=== PATIENT | female | born 1935 | race Caucasian/White ===

== ENCOUNTER 2016-07-03 13:04 | Emergency (ER) | payer OTHER ==
[~2016-07-03 13:04] MED LIST: ADV500/50; ALBUD HHN; ALBUTEROL SULFAT3 ML IH; ALD25 PO; ALDACTONE25 MG PO; AMB5 PO; AMITRIPTYLINE H10 MG PO; AMITRIPTYLINE10 MG PO; ANT12.5 PO; APAP/HYDROCODON1 T13 PO; APAP/HYDROCODON1 T15 PO; APR20I IV; ASPIR 8181 MG PO; ASPIRIN ADULT L81 M5 PO; BACO TOP; BACTRIM DS1 TAB PO; BG MC; BUS10 PO; BUS5 PO; BUSPAR5 MG PO; BUSPIRONE HCL10 MG PO; BUSPIRONE HCL5 MG PO; CEFTRIAXON1 GM/50 M1 IV; CEL100 PO; CENTRUM SILVER1 TAB PO; CIPRO500 MG PO; CLEOCIN HCL300 MG PO; COG1 PO; COL100 PO; COLACE100 MG PO; CYMBALTA30 M1 PO; CYMBALTA60 M1 PO; DEC150 PO; DETROL LA2 MG PO; DETROL2 MG PO; DEXPF IV; DITROPAN XL5 MG PO; DOC-Q-LACE100 MG PO; ECO81 PO; ELA10 PO; ENALAPRIL MALE2.5 MG PO; ESCITALOPRAM PO; EVI60 PO; FAMOTIDINE20 MG PO; FER300 PO; FERROUS SULFAT325 M2 PO; GABAPENTIN800 M1 PO; GLU500 PO; GOOD SENSE ASPI81 M3 PO; HCTZ/LISINOPRIL1 TA1 PO; HCTZ/LISINOPRIL1 TAB PO; HEP-FORTE1 CAP PO; HIBICLENS118 ML TOP; HUMULIN R100 U/1 M1 IJ; HUMULIN R100 U/1 M1 SC; HYDROCHLOROTH12.5 M2 PO; HYDROCHLOROTH12.5 MG PO; HYDROCHLOROTHIA25 MG PO; K10 PO; KLOR-CON M1010 MEQ PO; L20 PO; LAC PO; LATANOPROST2.5 ML OP; LEVOFLOXACIN500 M1 PO; LEVOTHYROXIN0.025 M2 PO; LEXAPRO10 MG PO; LIPI20 PO; LISINOPRIL40 MG PO; LOP600 PO; LOVASTATIN20 MG PO; MAC100 PO; MECLIZINE HYDRO25 M1 PO; METFORMIN HCL500 MG PO; METFORMIN HYDR500 M1 PO; METFORMIN500 M1 PO; MEV20 PO; MEVACOR20 MG PO; MIR125 PO; MOR2I IV; MULTIVITAMIN1 SGL PO; MUPIROCIN2% TOP; NEU300 PO; NEURONTIN400 MG PO; NEURONTIN600 MG PO; NEURONTIN800 MG PO; NOR10T PO; NOR5 PO; NORCO1 TA2 PO; OMEPRAZOLE20 M2 PO; OXYBUTYNIN5 M1 PO; OXYC PO; PEP20 PO; PEPCID20 MG PO; POTASSIUM CHLO10 MEQ PO; POTASSIUM PO; PRI20 PO; PRILOSEC20 MG PO; PROAIR HFA8.5 GM IH; PROVENTIL0.09 MG/A1 INH; PULMICORT180 MCG/Ac INH; RES15 PO; RESTASIS OU; RESTASIS0.051 OP; RESTASIS0.051 OU; RESTORIL15 MG PO; SERTRALINE HYDR50 M1 PO; SYN25 PO; TEN25 PO; TENORMIN25 MG PO; TORADOL10 MG PO; TRAMADOL HCL50 MG; TRAMADOL HCL50 MG PO; TRE400 PO; TRENTAL400 MG PO; TYL325 PO; ULT50 PO; V2 PO; VENTOLIN H0.09 MG/A1 IH; VENTOLIN H0.09 MG/A1 INH; VITAMIN C250 M1 PO; VITC PO; XALATAN2.5 ML OP; XALATAN2.5 ML OU; XALOS OP; XALOS OU; XAN5 PO; ZES20 PO; ZOF4 PO; ZOFI IV; [UNRECOGNIZED DRUG - OTHER] OU
[2016-07-03 16:11] LABS: BASOPHIL % 0.3 % (0-2)
[2016-07-03 16:13] LABS: PLATELET COUNT 121 x10^3mcL (130-400); RED CELL DISTRIBUTION WIDTH 14.6 % (11.5-14.5)
[2016-07-03 16:14] LABS: CALCIUM 8.9 mg/dL (8.5-10.1); CARBON DIOXIDE 31.3 mmol/L (21-32); CHLORIDE SERUM 102 mmol/L (98-107); CREATININE SERUM 0.7 mg/dL (0.6-1.0); GLUCOSE SERUM 122 mg/dL (74-106); POTASSIUM SERUM 3.8 mmol/L (3.5-5.1); SODIUM SERUM 140 mmol/L (136-145)
[2016-07-03 16:20] LABS: ALBUMIN 3.7 g/dL (3.4-5.0); ALKALINE PHOSPHATASE 133 U/L (46-116); ALT/SGPT 24 U/L (14-59); AST/SGOT 21 U/L (15-37); BILIRUBIN TOTAL 0.4 mg/dL (0.20-1.00); TOTAL PROTEIN, SERUM 6.5 g/dL (6.4-8.2)
[2016-07-03 16:34] VITALS: BP 152/80
== END 2016-07-03 16:34 | disposition home or self-care (01) ==
LOC: ED 13:04
PROVIDERS: Emergency Medicine
DX: M79.89 Other specified soft tissue disorders (principal); E11.40 Type 2 diabetes mellitus with diabetic neuropathy, unspecified; I10 Essential (primary) hypertension; E03.9 Hypothyroidism, unspecified; J45.909 Unspecified asthma, uncomplicated; E78.5 Hyperlipidemia, unspecified; M79.7 Fibromyalgia

== ENCOUNTER 2016-08-13 13:40 | Emergency (ER) | payer OTHER ==
[~2016-08-13] VITALS: Ht 157.5 cm; Wt 57.1 kg
[2016-08-13 15:30] LABS: BASOPHIL % 0.2 % (0-2); RED CELL DISTRIBUTION WIDTH 14.3 % (11.5-14.5)
[2016-08-13 15:33] LABS: PLATELET COUNT 128 x10^3mcL (130-400)
[2016-08-13 15:48] LABS: CHLORIDE SERUM 105 mmol/L (98-107); CREATININE SERUM 0.7 mg/dL (0.6-1.0); GLUCOSE SERUM 142 mg/dL (74-106); POTASSIUM SERUM 3.6 mmol/L (3.5-5.1); SODIUM SERUM 142 mmol/L (136-145)
[2016-08-13 15:52] LABS: ALBUMIN 3.8 g/dL (3.4-5.0); ALKALINE PHOSPHATASE 122 U/L (46-116); ALT/SGPT 23 U/L (14-59); AST/SGOT 24 U/L (15-37); BILIRUBIN TOTAL 0.4 mg/dL (0.20-1.00); CHOLESTEROL 179 mg/dL (<200); TOTAL PROTEIN, SERUM 6.9 g/dL (6.4-8.2)
[2016-08-13 18:24] VITALS: BP 138/74
== END 2016-08-13 18:24 | disposition home or self-care (01) ==
LOC: ED 13:40
PROVIDERS: Specialist
DX: R20.2 Paresthesia of skin (principal); E11.9 Type 2 diabetes mellitus without complications; E78.00 Pure hypercholesterolemia, unspecified; K21.9 Gastro-esophageal reflux disease without esophagitis; M79.7 Fibromyalgia; G62.9 Polyneuropathy, unspecified; Z88.0 Allergy status to penicillin
CPT/HCPCS: 83880; G0480; Q0092

== ENCOUNTER 2016-08-25 16:52 | Inpatient (IN) | payer OTHER ==
[~2016-08-25] VITALS: Ht 157.5 cm; Wt 61.0 kg
[2016-08-25 18:17] LABS: BASOPHIL % 0.5 % (0-2); PLATELET COUNT 141 x10^3mcL (130-400); RED CELL DISTRIBUTION WIDTH 14.2 % (11.5-14.5)
[2016-08-25 18:21] LABS: CALCIUM 8.7 mg/dL (8.5-10.1); CARBON DIOXIDE 29.1 mmol/L (21-32); CHLORIDE SERUM 101 mmol/L (98-107); CREATININE SERUM 0.8 mg/dL (0.6-1.0); GLUCOSE SERUM 135 mg/dL (74-106); POTASSIUM SERUM 3.4 mmol/L (3.5-5.1); SODIUM SERUM 138 mmol/L (136-145)
[2016-08-25 18:32] LABS: ALBUMIN 3.6 g/dL (3.4-5.0); ALKALINE PHOSPHATASE 128 U/L (46-116); ALT/SGPT 21 U/L (14-59); AST/SGOT 20 U/L (15-37); BILIRUBIN TOTAL 0.25 mg/dL (0.20-1.00); TOTAL PROTEIN, SERUM 6.6 g/dL (6.4-8.2)
[2016-08-25] MEDS ORDERED: GABAPENTIN800 M1 PO (20:38)
[2016-08-25 20:40] VITALS: BP 154/50
[2016-08-25 20:44] VITALS: Ht 157.5 cm; Wt 61.0 kg
[2016-08-25 21:20] LABS: T3 TOTAL 0.87 ng/mL
[2016-08-25 21:22] LABS: FREE T4 0.84 ng/dL (0.76-1.46); FREE THYROXINE INDEX 2.3 ug/dL (1.4-4.5); T4(THYROXINE) 6.5 ug/dL (4.7-13.3)
[2016-08-25 21:43] LABS: CHOLESTEROL/HDL RATIO 2.3
[2016-08-26 06:09] VITALS: BP 140/59
[2016-08-26 06:53] LABS: BASOPHIL % 0.4 % (0-2); RED CELL DISTRIBUTION WIDTH 14.1 % (11.5-14.5)
[2016-08-26 06:55] LABS: PLATELET COUNT 129 x10^3mcL (130-400)
[2016-08-26 07:35] LABS: CALCIUM 8.8 mg/dL (8.5-10.1); CARBON DIOXIDE 31.8 mmol/L (21-32); CHLORIDE SERUM 105 mmol/L (98-107); CREATININE SERUM 0.6 mg/dL (0.6-1.0); GLUCOSE SERUM 112 mg/dL (74-106); PHOSPHOROUS 3.2 mg/dL (2.5-4.9); POTASSIUM SERUM 3.2 mmol/L (3.5-5.1); SODIUM SERUM 141 mmol/L (136-145)
[2016-08-26 07:36] LABS: MAGNESIUM 1.9 mg/dL (1.8-2.4)
[2016-08-26 09:49] VITALS: BP 149/65
[2016-08-26 14:11] VITALS: BP 148/54
[2016-08-26 16:54] VITALS: BP 147/57
[2016-08-26 19:50] VITALS: BP 167/69
[2016-08-27 05:34] VITALS: BP 182/64
[2016-08-27 06:37] LABS: BASOPHIL % 0.3 % (0-2); RED CELL DISTRIBUTION WIDTH 14.4 % (11.5-14.5)
[2016-08-27 06:58] LABS: PLATELET COUNT 129 x10^3mcL (130-400)
[2016-08-27 07:07] LABS: CALCIUM 8.7 mg/dL (8.5-10.1); CARBON DIOXIDE 27.1 mmol/L (21-32); CHLORIDE SERUM 106 mmol/L (98-107); CREATININE SERUM 0.6 mg/dL (0.6-1.0); GLUCOSE SERUM 101 mg/dL (74-106); MAGNESIUM 1.7 mg/dL (1.8-2.4); PHOSPHOROUS 3.3 mg/dL (2.5-4.9); POTASSIUM SERUM 3.6 mmol/L (3.5-5.1); SODIUM SERUM 139 mmol/L (136-145)
[2016-08-27 10:31] VITALS: BP 148/62
[2016-08-27 17:15] VITALS: BP 155/68
[2016-08-27 18:40] LABS: microscopic required? YES; urine erythrocyte 3+ (NEGATIVE)
[2016-08-27 22:48] VITALS: BP 153/55
[2016-08-28 05:15] VITALS: BP 154/51
[2016-08-28 07:00] LABS: BASOPHIL % 0 % (0-2); PLATELET COUNT 128 x10^3mcL (130-400)
[2016-08-28 07:27] LABS: CALCIUM 8.4 mg/dL (8.5-10.1); CARBON DIOXIDE 24.8 mmol/L (21-32); CHLORIDE SERUM 106 mmol/L (98-107); CREATININE SERUM 0.5 mg/dL (0.6-1.0); GLUCOSE SERUM 101 mg/dL (74-106); MAGNESIUM 1.9 mg/dL (1.8-2.4); PHOSPHOROUS 3.3 mg/dL (2.5-4.9); POTASSIUM SERUM 3.3 mmol/L (3.5-5.1); SODIUM SERUM 140 mmol/L (136-145)
[2016-08-28] MEDS ORDERED: BD LACTINEX1.4 MG PO (14:24)
[2016-08-28] MEDS ORDERED: NITROFURANTOIN100 MG PO (14:24)
[2016-08-28] MEDS ORDERED: PRILOSEC OTC20 M1 PO (14:45)
[2016-08-28 14:52] VITALS: BP 154/51
== END 2016-08-28 20:53 | DRG 689 ==
LOC: ED 16:52 → DU 18:57 → MU 18:57 → DU 20:27 → MU 08-27 06:52
PROVIDERS: Emergency Medicine; ADMIT Family Medicine
DX: N39.0 Urinary tract infection, site not specified (principal); G93.41 Metabolic encephalopathy; S32.10XA Unspecified fracture of sacrum, initial encounter for closed fracture; I42.9 Cardiomyopathy, unspecified; D68.69 Other thrombophilia; R55 Syncope and collapse; S40.012A Contusion of left shoulder, initial encounter; S50.02XA Contusion of left elbow, initial encounter; S70.02XA Contusion of left hip, initial encounter; K21.9 Gastro-esophageal reflux disease without esophagitis; E11.51 Type 2 diabetes mellitus with diabetic peripheral angiopathy without gangrene; E11.40 Type 2 diabetes mellitus with diabetic neuropathy, unspecified; G47.00 Insomnia, unspecified; F41.8 Other specified anxiety disorders; F32.9 Major depressive disorder, single episode, unspecified; M79.7 Fibromyalgia; M50.122 Cervical disc disorder at C5-C6 level with radiculopathy; M50.123 Cervical disc disorder at C6-C7 level with radiculopathy; J45.909 Unspecified asthma, uncomplicated; I10 Essential (primary) hypertension; E03.9 Hypothyroidism, unspecified; Z68.24 Body mass index [BMI] 24.0-24.9, adult; Z91.81 History of falling; W18.39XA Other fall on same level, initial encounter; Y92.000 Kitchen of unspecified non-institutional (private) residence as the place of occurrence of the external cause
CPT/HCPCS: 82962; 83880; 84439; 97110-GP; 97116-GP; 97530-GP; J1956; J2270; J2405; J3010; J3475; J3490; J7030; J7620; J7633; Q0092

== ENCOUNTER 2016-10-02 12:27 | Emergency (ER) | payer OTHER ==
[~2016-10-02 12:27] MED LIST changes: +BD LACTINEX1.4 MG PO; +NITROFURANTOIN100 MG PO; +PRILOSEC OTC20 M1 PO
[2016-10-02 16:32] LABS: CALCIUM 8.8 mg/dL (8.5-10.1); CARBON DIOXIDE 27.2 mmol/L (21-32); CHLORIDE SERUM 99 mmol/L (98-107); CREATININE SERUM 0.7 mg/dL (0.6-1.0); GLUCOSE SERUM 123 mg/dL (74-106); POTASSIUM SERUM 3.4 mmol/L (3.5-5.1); SODIUM SERUM 137 mmol/L (136-145)
[2016-10-02 16:57] LABS: UA SPECIFIC GRAVITY <=1.005 (1.005-1.035); microscopic required? YES; urine erythrocyte TRACE (NEGATIVE)
[2016-10-02 16:59] LABS: BASOPHIL % 0.3 % (0-2); PLATELET COUNT 111 x10^3mcL (130-400); RED CELL DISTRIBUTION WIDTH 14.6 % (11.5-14.5)
[2016-10-02 20:09] VITALS: BP 146/75
== END 2016-10-02 20:09 | disposition home or self-care (01) ==
LOC: ED 12:27
PROVIDERS: Emergency Medicine Emergency Medical Services
DX: J34.89 Other specified disorders of nose and nasal sinuses (principal); N39.0 Urinary tract infection, site not specified; I10 Essential (primary) hypertension; I50.9 Heart failure, unspecified; E11.9 Type 2 diabetes mellitus without complications; J45.909 Unspecified asthma, uncomplicated; Z79.899 Other long term (current) drug therapy; Z88.0 Allergy status to penicillin; W06.XXXA Fall from bed, initial encounter; Y93.89 Activity, other specified; Y99.8 Other external cause status; Y92.89 Other specified places as the place of occurrence of the external cause
CPT/HCPCS: 36415

== ENCOUNTER 2016-10-26 12:14 | Emergency (ER) | payer OTHER ==
[2016-10-26 16:48] VITALS: BP 168/56
== END 2016-10-26 16:48 | disposition home or self-care (01) ==
LOC: ED 12:14
DX: S50.01XA Contusion of right elbow, initial encounter (principal); M54.5 Low back pain; E11.9 Type 2 diabetes mellitus without complications; I10 Essential (primary) hypertension; E78.00 Pure hypercholesterolemia, unspecified; K21.9 Gastro-esophageal reflux disease without esophagitis; M79.7 Fibromyalgia; Z88.0 Allergy status to penicillin; Z79.899 Other long term (current) drug therapy; W18.39XA Other fall on same level, initial encounter; Y93.89 Activity, other specified; Y99.8 Other external cause status; Y92.89 Other specified places as the place of occurrence of the external cause
CPT/HCPCS: 82962; J1885

== ENCOUNTER 2016-11-21 14:19 | Inpatient (IN) | payer OTHER ==
[~2016-11-21] VITALS: Ht 157.5 cm; Wt 61.5 kg
--- NOTE | 2016-11-21 14:35 | NUR ---
TO BED 7 AFTER BRIEF WALL TIME.
--- NOTE | 2016-11-21 14:50 | NUR ---
DR. BARBA BEDSIDE FOR MSE
--- NOTE | 2016-11-21 14:54 | NUR ---
PATIENT BROUGHT IN BY AMBULANCE COMPLAINING OF GENERALIZED PAIN SECONDARY TO FAILLING FROM BED THIS MORNING. PATIENT HAS ABRASION TO THE LEFT TAOIST NOTE THAT IS NOT BLEEDING AND HAS A SCAB. PATIENT HAS ECCHYMOSIS TO LEFT THIGH. NO RESPIRATORY DISTRESS NOTED, NO COMPLAINTS OF CHEST PAIN OR SOB.
[2016-11-21 15:26] LABS: BASOPHIL % 0.2 % (0-2); PLATELET COUNT 142 x10^3mcL (130-400); RED CELL DISTRIBUTION WIDTH 13.9 % (11.5-14.5)
[2016-11-21 15:42] LABS: microscopic required? NO
[2016-11-21 15:45] LABS: ALBUMIN 3.7 g/dL (3.4-5.0); ALKALINE PHOSPHATASE 114 U/L (46-116); ALT/SGPT 22 U/L (14-59); AMYLASE 35 U/L (25-115); AST/SGOT 33 U/L (15-37); CHLORIDE SERUM 101 mmol/L (98-107); CHOLESTEROL 152 mg/dL (<200); CREATININE SERUM 0.6 mg/dL (0.6-1.0); GLUCOSE SERUM 135 mg/dL (74-106); LIPASE 83 IU/L (73-393); MAGNESIUM 1.9 mg/dL (1.8-2.4); SODIUM SERUM 138 mmol/L (136-145); T4(THYROXINE) 7.9 ug/dL (4.7-13.3); TOTAL PROTEIN, SERUM 7.3 g/dL (6.4-8.2)
[2016-11-21 15:52] LABS: HDL CHOLESTEROL 62 mg/dL (40-60)
[2016-11-21 15:54] LABS: POTASSIUM SERUM 2.8 mmol/L (3.5-5.1)
--- NOTE | 2016-11-21 16:20 | NUR ---
PT TO CT SCANNER VIA [employer]. NO DISTRESS.
[2016-11-21 16:41] LABS: urine erythrocyte NEGATIVE (NEGATIVE)
[2016-11-21 16:42] LABS: AMPHETAMINE QUAL UR NONE DETECTED (NEG <=1000)
--- NOTE | 2016-11-21 17:08 | NUR ---
UNABLE TO DO MED REC DUE TO PATIENT UNABLE TO RECALL HOME MEDICATIONS OR DOSAGES.
--- NOTE | 2016-11-21 17:18 | NUR ---
PATIENT STATES THAT SHE HAS DIFFICULTY SWALLOWING PILLS. DR. GRAF MADE AWARE. TO BE HELD AND IV REPLACEMENT TO BE ORDERED.
--- NOTE | 2016-11-21 17:29 | NUR ---
RECEIVED PATIENT FROM ED VIA GUERNEY ACCOMPANIED BY ED NURSE. PATIENT A/O X3, BRITISH SPEAKING WITH LITTLE INDONESIAN. PATIENT BIB DUE TO FALLING OUT OF BED THIS AM, SMALL ABRASION/SCAB NOTED TO LEFT UATSDIN AND ECCHYMOSIS NOTED TO RIGHT AND LEFT HIP (PICTURES TAKEN). TELE # 18 APPLIED. BREATHING EVEN UNLABBORED ON RA, DENIES SOB, NO DISTRESS NOTED. PATIENT HAS IV TO RAC INTACT INFUSING NS AT 100 ML/HR FREE FROM REDNESS AND INFILTRATION. PATIENT COOPERATIVE WITH CARE, ORIENTED TO ROOM. INSTRUCTED TO CALL FOR ASSISTANCE IF NEEDED. SAFETY PRECAUTIONS MAINTAINED, WILL MONITOR.
[2016-11-21 17:45] VITALS: BP 180/67
[2016-11-21 17:55] VITALS: BP 180/67
--- NOTE | 2016-11-21 19:15 | NUR ---
REPORT GIVEN TO DANILO DOMINGUEZ, ALL QUESTIONS AND CONCERNS ADDRESSED. ALL CARES ENDORSED.
--- NOTE | 2016-11-21 19:15 | NUR ---
I HAVE REVIEWED THE DATA COLLECTION BY ORDERING MACHINE OPERATOR (NAME):ALBERTO MARTIN CHI ENTERED ON (DATE/TIME): I CONCUR WITH THE DATA AND ANY EXCEPTIONS OR COMMENTS ARE LISTED BELOW:
--- NOTE | 2016-11-21 19:45 | NUR ---
DR. OMAR TAMEZ AT BEDSIDE AND ASSESSING PT. PT DIFFICULT TO AROUSE AT THIS TIME BUT OPENING EYES AT TIMES. WILL CONTINUE TO MONITOR PT.
--- NOTE | 2016-11-21 19:55 | NUR ---
I HAVE REVIEWED THE DATA COLLECTION BY OTHER SALES SUPPORT WORKER (NAME):ALBERTO MARTIN CHI. ENTERED ON (DATE/TIME): I CONCUR WITH THE DATA AND ANY EXCEPTIONS OR COMMENTS ARE LISTED BELOW:
[2016-11-21 19:57] VITALS: BP 147/64
[2016-11-21 22:00] VITALS: BP 157/63
--- NOTE | 2016-11-21 22:45 | NUR ---
PT AWAKE AND ORIENTED X3. SHE IS INCONTINENT OF URINE. CLEANED PT AND KEPT COMFORTABLE.
[2016-11-21 22:46] LABS: CALCIUM 8.4 mg/dL (8.5-10.1); CHLORIDE SERUM 106 mmol/L (98-107); CREATININE SERUM 0.5 mg/dL (0.6-1.0); GLUCOSE SERUM 131 mg/dL (74-106); SODIUM SERUM 141 mmol/L (136-145)
[2016-11-21 22:49] LABS: POTASSIUM SERUM 2.7 mmol/L (3.5-5.1)
--- NOTE | 2016-11-21 22:52 | NUR ---
INFORMED DR. TAMEZ REGARDING POTASSIUM OF 2.7 .
--- NOTE | 2016-11-21 23:05 | NUR ---
PT FEELING NAUSEATED AND VOMITING SMALL AMOUNT. MEDICATED HER W/ ZOFRAN 4 MG IV.
--- NOTE | 2016-11-21 23:30 | NUR ---
PT APPERAS TO BE SLEEPING COMFORTABLY. NO FURTHER C/O N/V.
--- NOTE | 2016-11-22 03:25 | NUR ---
PT AWAKE AND ORIENTED AT THIS TIME, PT ANSWERS APPROPRIATELY, NO FACIAL DROOP NOTED, BUT PT C/O DAMON 10/28. PT GIVEN TYLENOL 650 MG PO FOR DAMON. WILL CONTINUE TO ASSESS AND MONITOR.
--- NOTE | 2016-11-22 04:19 | NUR ---
REASSESSED PT FOR DAMON. PT CURRENTLY SLEEPING COMFORTABLY, NO SIGNS OF DISTRESS NOTED. WILL CONTINUE TO MONITOR.
[2016-11-22 06:32] LABS: BASOPHIL % 0.3 % (0-2); RED CELL DISTRIBUTION WIDTH 14.1 % (11.5-14.5)
[2016-11-22 06:41] VITALS: BP 139/54
[2016-11-22 06:42] LABS: CALCIUM 8.4 mg/dL (8.5-10.1); CARBON DIOXIDE 25.9 mmol/L (21-32); CHLORIDE SERUM 108 mmol/L (98-107); CREATININE SERUM 0.6 mg/dL (0.6-1.0); GLUCOSE SERUM 116 mg/dL (74-106); POTASSIUM SERUM 3.3 mmol/L (3.5-5.1); SODIUM SERUM 142 mmol/L (136-145)
[2016-11-22 06:53] LABS: PLATELET COUNT 129 x10^3mcL (130-400)
--- NOTE | 2016-11-22 06:56 | NUR ---
PT ASLEEP MOST OF THE NIGHT. SHE HAD NO EPISODE OF RESP. DISTRESS. PT ABLE TO ANSWER APPROPRIATELY. SHE IS ORIENTED X3. SHE WAS ABLE TO TAKE HER PO MEDS WELL THIS MORNING. SHE HAS NO C/O PAIN. SHE IS INCONTINENT OF URINE AND NO BM NOTED. IVF NS AT 100 CC/HR INFUSING VIA RTAC.
--- NOTE | 2016-11-22 07:21 | NUR ---
RECEIVED PT LAYING IN BED ASLEEP. NO APPARENT SIGNS OF ACUTE DISTRESS NOTED AT THIS TIME. RESPIRATIONS EVEN AND UNLABORED. IV TO RAC APPEARS PATENT AND INFUSING WELL. SCDs IN PLACE. CALL LIGHT WITHIN REACH, BED IN LOWEST POSITION. WILL CONTINUE TO MONITOR
[2016-11-22 08:50] VITALS: BP 139/54
--- NOTE | 2016-11-22 09:00 | NUR ---
AM ROUNDS DONE. PER DR. SUAREZ, PT WILL STAY FOR CONTINUED MONITORING. PT AGREES TO PLAN OF CARE. CALL LIGHT WITHIN REACH. WILL CONTINUE TO MONITOR
--- NOTE | 2016-11-22 11:04 | NUR ---
PT C/O SEVERE BACK PAIN. ENCOURAGED PT TO RELAX AND TAKE DEEP BREATHES. GIVEN MORPHINE IVP PRN. CALL LIGHT WITHIN REACH, REPOSITIONED PT FOR COMFORT, AND BED IN LOWEST POSITION. WILL CONTINUE TO MONITOR
--- NOTE | 2016-11-22 12:20 | NUR ---
SPKUSUM TO DR. CELESTE IN REGARDS TO PT C/O SEVERE PAIN IN HER FEET WELL CONTINUED FEELINGS OF DIZZINESS DESPITE MECLIZINE. DOCTOR STATED HE WOULD REVIEW HER MED REC FOR NEURONTIN AND POSSIBLE ONE TIME DOSE OF DILAUDID PRN. AWAITING ORDERS
--- NOTE | 2016-11-22 13:10 | NUR ---
SENT DR. CELESTE A PAGEGATE IN REGARDS TO PT DIET. PT REQUESTED PUREE DIET BECAUSE SHE HAS NO TEETH. AWAITING RESPONSE
[2016-11-22 13:36] VITALS: BP 150/57
--- NOTE | 2016-11-22 15:17 | NUR ---
PT HAD C/O CONTINUED PAIN AND DIZZINESS. WAS GIVEN DILAUDID x1 AND MECLIZINE 25MG PO PRN TID. DR. CELESTE AWARE OF PT CONDITION. CALL LIGHT WITHIN REACH, BED IN LOWEST POSITION WILL CONTINUE TO MONITOR
[2016-11-22 17:28] VITALS: BP 144/57
--- NOTE | 2016-11-22 17:59 | NUR ---
PT C/O PAIN 5/10 PAIN. ENCOURAGED PT TO REPOSITION FOR COMFORT. GIVEN NORCO PO PRN. CALL LIGHT WITHIN REACH. ENCOURAGED PT TO TAKE IN ADEQUATE FLUIDS. BED IN LOWEST POSITION. WILL CONTINUE TO MONITOR
--- NOTE | 2016-11-22 19:35 | NUR ---
RECEIVED Pt AAOX3 CALMA ND COOPERATIVE WITH CARE. DENIES ANY CHEST PAIN. LUNG SOUNDS ARE CTA BILATERALLY. Pt IS ON ROOM AIR, NO RESPIRATORY DISTRESS NOTED. ACTIVE BOWEL SOUNDS X4 QUADS. DENIES ANY ABDOMINAL DISCOMFORT, N/V/D. VOIDS FREELY. IV SITE TO RAC IS PATENT. MOVES ALL EXTREMITIES, NO EDEMA NOTED. SCD'S IN PLACE. RE-ORIENTED TO ROOM, CALL LIGHT SYSTEM AND POC. WILL CONTINUE TO MONITOR.
[2016-11-22 20:51] VITALS: BP 135/48
--- NOTE | 2016-11-22 23:44 | NUR ---
I HAVE REVIEWED THE DATA COLLECTION BY JELENA (NAME):Vasyl TIDWELL ENTERED ON (DATE/TIME):11/22/16 AT 2001. I CONCUR WITH THE DATA AND ANY EXCEPTIONS OR COMMENTS ARE LISTED BELOW:
--- NOTE | 2016-11-22 23:45 | NUR ---
PATIENT'S PLAN OF CARE WAS DISCUSSED AND REVIEWED WITH RING BARKER OPERATOR:Vasyl TIDWELL.
--- NOTE | 2016-11-23 00:22 | NUR ---
Pt RESTING, NO SIGNS OF DISTRESS. WILL CONTINUE TO MONITOR.
--- NOTE | 2016-11-23 05:18 | NUR ---
AWARE OF K-RIDER DAILY. LAB DRAWING AM LABS AT THIS TIME. STATED WILL LET THE DAY TEAM DECIDE IF K-RIDER IS NEEDED, BASED ON AM LAB RESULTS.
--- NOTE | 2016-11-23 05:20 | NUR ---
NO SIGNIFICANT CHANGES NOTED OVER NIGHT. MEDICATED NEEDED FOR PAIN AND DIZZINESS. VOIDS FREELY/INCONTINENT. CONTINUES TO REST QUIETLY. SAFETY AND COMFORT MEASURES REMAIN IN PLACE. WILL CONTINUE TO MONITOR.
[2016-11-23 05:23] VITALS: BP 136/55
[2016-11-23 06:22] LABS: BASOPHIL % 0.7 % (0-2); RED CELL DISTRIBUTION WIDTH 14.4 % (11.5-14.5)
[2016-11-23 06:27] LABS: PLATELET COUNT 117 x10^3mcL (130-400)
[2016-11-23 06:47] LABS: CALCIUM 8.3 mg/dL (8.5-10.1); CARBON DIOXIDE 29.5 mmol/L (21-32); CHLORIDE SERUM 109 mmol/L (98-107); CREATININE SERUM 0.6 mg/dL (0.6-1.0); GLUCOSE SERUM 135 mg/dL (74-106); POTASSIUM SERUM 3.3 mmol/L (3.5-5.1); SODIUM SERUM 143 mmol/L (136-145)
--- NOTE | 2016-11-23 07:45 | NUR ---
PATIENT A/OX3, DENIES HEADACHE, TIRED/DROWSY. TELE 18, DENIES CP. LUNGS MILDLY DIMINISHED BILAT OTHERWISE CTA, NO RESP DISTRESS NOTED ON RA. PERIPHERAL PULSES PALPABLE, NO EDEMA NOTED. DENIES NUMBNESS, ABLE TO MOVE ALL EXTREMITIES. BOWEL SOUNDS ACTIVE, LAST BM 11/21, DENIES N/V. INCONTINENCE NOTED. SCRATCH NOTED TO LT SIDE FOREHEAD, NO ACTIVE BLEEDING, SHERRIE. ECCHYMOSIS/DISCOLORATION NOTED TO BILAT HIPS AND BILAT ANKLES, SHERRIE. IV ACCESS TO RAC RUNNING NS INFUSING WELL SITE WNL. NO COMPLAINTS OF PAIN AT THIS TIME. SOCIAL SERVICE TECHNICIAN AT BEDSIDE ASSISTING PATIENT WITH BREAKFAST MEAL, PUREE. CALL LIGHT WITHIN REACH AND REINFORCED ON UTILIZING.
[2016-11-23 09:44] VITALS: BP 120/46
[2016-11-23 14:00] VITALS: BP 150/61
--- NOTE | 2016-11-23 16:00 | NUR ---
PATIENT C/O DIZZINESS. MECLIZINE ANTIVERT GIVEN. WILL CONT TO MONITOR.
--- NOTE | 2016-11-23 16:43 | NUR ---
PATIENT STATES NOT FEELING DIZZY/VERTIGO AT THIS TIME. MECLIZINE EFFECTIVE. WILL CONT TO MONITOR.
[2016-11-23 16:52] VITALS: BP 152/55
--- NOTE | 2016-11-23 17:29 | NUR ---
PER CASE MANAGEMENT, PATIENT HAS BEEN ACCEPTED TO [facility]. REPORT TO CALL IS [phone], ELECTRICAL ELECTRONICS TECHNICIAN TIME WITH [facility] [employer] [facility]SPORT IS 2100. CHARGE NURSE AND DR CELESTE MADE AWARE.
--- NOTE | 2016-11-23 17:58 | NUR ---
INFORMED PATIENT WITH A STAFFING EXECUTIVE THAT CASE MANAGMENT FOUND A FACILITY FOR HER TO TRANSFER TO, SHE RESPONDED "OH THANK YOU!", INFORMED PATIENT A BED IS AVAILABLE AT [facility] AND [facility] IS AT 9:00pm, PATIENT RESPONDED "OH NO, NO. I DONT WANT TO GO THERE, NOT THERE." WHEN ASKED WHY, PATIENT RESPONDED "THERE'S ALOT OF PROBLEMS WHEN I WAS THERE." KALYAN KHANNA MADE AWARE. DR CELESTE PAGED AND MADE AWARE, HE SAID HE WILL INFORM THE NOC TEAM. ATTEMPTED TO CONTACT DAUGHTER DESTINEE, NO ANSWER. LEFT VOICE MESSAGE.
[2016-11-23] MEDS ORDERED: MECLIZINE HYDRO25 M1 PO (18:12)
--- NOTE | 2016-11-23 19:33 | NUR ---
RECEIVED PATIENT FROM AM ALBERTO-MISA. PATIENT C/O PAIN TO RIGHT HIP WITH ALOT OF PAIN 8/10 WITH FACIAL GRIMACING. ADMINISTERED PAIN MEDICATION PRN FOR PAIN REQUESTED. ALSO CHANGED PATIENT, X1 URINE.
[2016-11-23 21:11] VITALS: BP 142/50
[2016-11-24 06:24] VITALS: BP 175/64
--- NOTE | 2016-11-24 06:39 | NUR ---
PATIENT QUIETLY RESTING IN BED AT THIS TIME. NO S/SX OF DISTRESS NOTED. CALL NEEDS MET AND CALL LIGHT WITHIN REACH. WILL ENDORSE CONTINUITY OF CARE TO AM RN
--- NOTE | 2016-11-24 07:15 | NUR ---
BEDSIDE REPORT RECEIVED FROM [facility] SHIFT NURSE AT THIS TIME. PATIENT ASLEEP, NO SIGNS OF DISTRESS NOTED. BREATHING EVEN AND UNLABORED. ALL SAFETY MEASURES IN PLACE, WILL CONTINUE TO MONITOR.
[2016-11-24 07:50] VITALS: BP 163/61
--- NOTE | 2016-11-24 07:50 | NUR ---
PATIENT ASLEEP, EASILY AROUSED VIA VERBAL STIMULI. DENIES CHEST PAIN, NO DIZZINESS, TELE# 18, HR 73. SCD'S IN PLACE, ON ROOM AIR. NS TO RAC AT 100 ML/HR, NO REDNESS NOR INFILTRATION NOTED TO SITE. CALM AND COOPERATIVE WITH CARE, ALL SAFETY MEASURES IN PLACE, WILL CONTINUE TO MONITOR.
--- NOTE | 2016-11-24 11:08 | NUR ---
PATIENT AWAKE, ALERT, NURSE AID AT BEDSIDE ATTENDING TO NEEDS. MEDICATED PER MD ORDER (SEE EMAR). ALL SAFETY MEASURES IN PLACE, WILL CONTINUE TO MONITOR.
[2016-11-24 12:48] VITALS: BP 172/68
--- NOTE | 2016-11-24 15:00 | NUR ---
PHYSICAL THERAPY DAILY NOTES CO-SIGN All documentation done by the Substance Abuse Technician for 11/24/16 has been reviewed. I agree with the documentation. I CONCUR W/AIRPLANE INSPECTOR NOTE; TO MONITOR VS DURING TX, CONT PER TX PLAN Reviewed/Co-Signed by: Yamile Segundo V PT Documentation Done by: TK CARDOZA AIRPLANE INSPECTOR
[2016-11-24 15:14] VITALS: BP 172/68
[2016-11-24 15:21] VITALS: BP 161/63
--- NOTE | 2016-11-24 15:45 | NUR ---
DISCHARGE TEACHING PROVIDED AT THIS TIME. PATIENT AWAKE, ALERT, NO SIGNS OF DISTRESS NOTED, IV DC'D, TELE MONITOR RETURNED TO COAL LOADER. WILL FACILITATE DISCHARGE.
--- NOTE | 2016-11-24 16:05 | NUR ---
REPORT GIVEN TO NURSE AT [facility] AT THIS TIME. TRANSPORT AT BEDSIDE, WILL FACITLITATE DISCHARGE.
== END 2016-11-24 16:40 | DRG 605 ==
LOC: ED 14:19 → DU 16:29
PROVIDERS: Emergency Medicine; ADMIT Family Medicine
DX: S00.03XA Contusion of scalp, initial encounter (principal); I42.0 Dilated cardiomyopathy; E87.6 Hypokalemia; E11.42 Type 2 diabetes mellitus with diabetic polyneuropathy; I16.0 Hypertensive urgency; K21.9 Gastro-esophageal reflux disease without esophagitis; M79.7 Fibromyalgia; M50.122 Cervical disc disorder at C5-C6 level with radiculopathy; M50.123 Cervical disc disorder at C6-C7 level with radiculopathy; N32.81 Overactive bladder; J45.909 Unspecified asthma, uncomplicated; F41.8 Other specified anxiety disorders; E03.9 Hypothyroidism, unspecified; E78.5 Hyperlipidemia, unspecified; Z68.24 Body mass index [BMI] 24.0-24.9, adult; Z22.322 Carrier or suspected carrier of Methicillin resistant Staphylococcus aureus; Z91.81 History of falling; W06.XXXA Fall from bed, initial encounter; Y92.003 Bedroom of unspecified non-institutional (private) residence as the place of occurrence of the external cause
CPT/HCPCS: 82962; 83880; 97110-GP; 97116-GP; 97530-GP; G0480; J1170; J2270; J2405; J3480; J7030; J7613; J8597; Q0092

== ENCOUNTER 2017-01-08 00:30 | Inpatient (IN) | payer OTHER ==
[~2017-01-08] VITALS: Ht 152.4 cm; Wt 59.4 kg
[2017-01-08 01:41] LABS: BASOPHIL % 0.3 % (0-2); PLATELET COUNT 150 x10^3mcL (130-400); RED CELL DISTRIBUTION WIDTH 14.1 % (11.5-14.5)
[2017-01-08 02:01] LABS: CALCIUM 8.6 mg/dL (8.5-10.1); CARBON DIOXIDE 28.2 mmol/L (21-32); CHLORIDE SERUM 103 mmol/L (98-107); CREATININE SERUM 0.7 mg/dL (0.6-1.0); GLUCOSE SERUM 81 mg/dL (74-106); POTASSIUM SERUM 3.1 mmol/L (3.5-5.1); SODIUM SERUM 137 mmol/L (136-145)
[2017-01-08 02:05] LABS: ALBUMIN 3.5 g/dL (3.4-5.0); ALKALINE PHOSPHATASE 107 U/L (46-116); ALT/SGPT 21 U/L (14-59); AST/SGOT 23 U/L (15-37); TOTAL PROTEIN, SERUM 6.5 g/dL (6.4-8.2)
[2017-01-08 11:38] VITALS: BP 148/71
[2017-01-08 12:24] LABS: MAGNESIUM 1.9 mg/dL (1.8-2.4)
[2017-01-08 12:25] LABS: FREE T4 0.89 ng/dL (0.76-1.46); FREE THYROXINE INDEX 2.5 ug/dL (1.4-4.5)
[2017-01-08 12:27] LABS: CHOLESTEROL/HDL RATIO 2.1
[2017-01-08 12:45] LABS: microscopic required? YES
[2017-01-08 12:46] LABS: urine erythrocyte NEGATIVE (NEGATIVE)
[2017-01-08 13:01] VITALS: BP 149/59
[2017-01-08 15:28] LABS: T3 TOTAL 0.92 ng/mL
[2017-01-08 16:07] VITALS: BP 164/64
[2017-01-08 16:13] VITALS: BP 172/63
[2017-01-08 18:25] VITALS: BP 157/55
[2017-01-08 20:30] VITALS: BP 149/54
[2017-01-09 05:08] VITALS: BP 135/80
[2017-01-09 09:05] VITALS: BP 151/53
[2017-01-09 09:10] VITALS: BP 151/53
[2017-01-09 13:51] VITALS: BP 151/54
[2017-01-09 17:32] LABS: BASOPHIL % 0.3 % (0-2); RED CELL DISTRIBUTION WIDTH 13.9 % (11.5-14.5)
[2017-01-09 17:38] LABS: CALCIUM 8.4 mg/dL (8.5-10.1); CARBON DIOXIDE 27.9 mmol/L (21-32); CHLORIDE SERUM 103 mmol/L (98-107); CREATININE SERUM 0.7 mg/dL (0.6-1.0); GLUCOSE SERUM 125 mg/dL (74-106); SODIUM SERUM 141 mmol/L (136-145)
[2017-01-09 17:40] VITALS: BP 143/50
[2017-01-09 17:43] LABS: POTASSIUM SERUM 2.5 mmol/L (3.5-5.1)
[2017-01-09 18:16] LABS: PLATELET COUNT 123 x10^3mcL (130-400)
[2017-01-09 21:23] VITALS: BP 135/45
[2017-01-09 23:09] LABS: CALCIUM 8.5 mg/dL (8.5-10.1); CARBON DIOXIDE 27.2 mmol/L (21-32); CHLORIDE SERUM 107 mmol/L (98-107); CREATININE SERUM 0.7 mg/dL (0.6-1.0); GLUCOSE SERUM 185 mg/dL (74-106); POTASSIUM SERUM 3.9 mmol/L (3.5-5.1); SODIUM SERUM 141 mmol/L (136-145)
[2017-01-10 06:31] VITALS: BP 153/56
[2017-01-10 07:15] LABS: BASOPHIL % 0.1 % (0-2); RED CELL DISTRIBUTION WIDTH 14.1 % (11.5-14.5)
[2017-01-10 07:18] LABS: PLATELET COUNT 125 x10^3mcL (130-400)
[2017-01-10 07:30] LABS: CALCIUM 8.5 mg/dL (8.5-10.1); CARBON DIOXIDE 29.8 mmol/L (21-32); CHLORIDE SERUM 108 mmol/L (98-107); CREATININE SERUM 0.5 mg/dL (0.6-1.0); GLUCOSE SERUM 108 mg/dL (74-106); POTASSIUM SERUM 3.5 mmol/L (3.5-5.1); SODIUM SERUM 144 mmol/L (136-145)
[2017-01-10 09:59] VITALS: BP 156/68
[2017-01-10 11:57] VITALS: Ht 152.4 cm; Wt 59.4 kg
[2017-01-10 13:45] VITALS: BP 160/61
[2017-01-10 16:59] VITALS: BP 162/57
[2017-01-10 19:01] VITALS: BP 145/60
[2017-01-10 20:38] VITALS: BP 147/48
[2017-01-11 06:19] LABS: BASOPHIL % 0.5 % (0-2); RED CELL DISTRIBUTION WIDTH 13.9 % (11.5-14.5)
[2017-01-11 06:24] VITALS: BP 149/49
[2017-01-11 06:30] LABS: PLATELET COUNT 116 x10^3mcL (130-400)
[2017-01-11 06:38] LABS: CALCIUM 8.4 mg/dL (8.5-10.1); CARBON DIOXIDE 29.8 mmol/L (21-32); CHLORIDE SERUM 109 mmol/L (98-107); CREATININE SERUM 0.5 mg/dL (0.6-1.0); GLUCOSE SERUM 88 mg/dL (74-106); MAGNESIUM 1.6 mg/dL (1.8-2.4); PHOSPHOROUS 3.2 mg/dL (2.5-4.9); POTASSIUM SERUM 3.3 mmol/L (3.5-5.1); SODIUM SERUM 144 mmol/L (136-145)
[2017-01-11] MEDS ORDERED: CIPROFLOXACIN250 M2 PO (09:23)
[2017-01-11] MEDS ORDERED: LAC PO (09:24)
[2017-01-11] MEDS ORDERED: BACO TOP (09:25)
[2017-01-11] MEDS ORDERED: HIBICLENS118 ML TOP (09:26)
[2017-01-11 09:39] VITALS: BP 156/61
[2017-01-11 11:50] VITALS: BP 156/61
[2017-01-11 13:12] VITALS: BP 150/53
== END 2017-01-11 15:02 | DRG 689 ==
LOC: ED 00:30 → DU 06:56 → EDBEDREQ 06:58 → DU 07:56
PROVIDERS: Emergency Medicine; Family Medicine; ADMIT Family Medicine
DX: N39.0 Urinary tract infection, site not specified (principal); G93.41 Metabolic encephalopathy; I42.9 Cardiomyopathy, unspecified; S80.11XA Contusion of right lower leg, initial encounter; E11.42 Type 2 diabetes mellitus with diabetic polyneuropathy; F41.8 Other specified anxiety disorders; E87.6 Hypokalemia; M79.7 Fibromyalgia; M50.322 Other cervical disc degeneration at C5-C6 level; F32.9 Major depressive disorder, single episode, unspecified; N32.81 Overactive bladder; J45.909 Unspecified asthma, uncomplicated; I10 Essential (primary) hypertension; K21.9 Gastro-esophageal reflux disease without esophagitis; D64.9 Anemia, unspecified; E78.5 Hyperlipidemia, unspecified; E03.9 Hypothyroidism, unspecified; Y93.89 Activity, other specified; W18.39XA Other fall on same level, initial encounter; Y92.012 Bathroom of single-family (private) house as the place of occurrence of the external cause; Z91.81 History of falling; Z95.2 Presence of prosthetic heart valve; Z68.25 Body mass index [BMI] 25.0-25.9, adult; Z79.84 Long term (current) use of oral hypoglycemic drugs
CPT/HCPCS: 82962; 83880; 84439; 97110-GP; 97116-GP; 97530-GP; J1956; J2270; J3480; J7030; J7613; Q0092

== ENCOUNTER 2017-02-28 10:57 | Emergency (ER) | payer OTHER ==
[~2017-02-28 10:57] MED LIST changes: +CIPROFLOXACIN250 M2 PO
[2017-02-28 14:33] VITALS: BP 152/78
== END 2017-02-28 14:33 | disposition home or self-care (01) ==
LOC: ED 10:57
DX: S80.12XA Contusion of left lower leg, initial encounter (principal); E11.9 Type 2 diabetes mellitus without complications; E07.9 Disorder of thyroid, unspecified; M79.7 Fibromyalgia; J45.909 Unspecified asthma, uncomplicated; I11.0 Hypertensive heart disease with heart failure; I50.9 Heart failure, unspecified; M19.90 Unspecified osteoarthritis, unspecified site; E11.40 Type 2 diabetes mellitus with diabetic neuropathy, unspecified; Z79.84 Long term (current) use of oral hypoglycemic drugs; K21.9 Gastro-esophageal reflux disease without esophagitis; Z86.79 Personal history of other diseases of the circulatory system; Z79.899 Other long term (current) drug therapy; Z88.0 Allergy status to penicillin; W22.8XXA Striking against or struck by other objects, initial encounter; Y93.89 Activity, other specified; Y99.8 Other external cause status; Y92.89 Other specified places as the place of occurrence of the external cause
CPT/HCPCS: Q0092

== ENCOUNTER 2017-05-14 12:30 | Observation (INO) | payer OTHER ==
[~2017-05-14] VITALS: Ht 157.5 cm; Wt 53.7 kg
[2017-05-14 15:21] LABS: UA SPECIFIC GRAVITY 1.015 (1.005-1.035); microscopic required? YES; urine erythrocyte TRACE (NEGATIVE)
[2017-05-14 15:28] LABS: BASOPHIL % 0.3 % (0-2); PLATELET COUNT 160 x10^3mcL (130-400); RED CELL DISTRIBUTION WIDTH 14.5 % (11.5-14.5)
[2017-05-14 15:34] LABS: AMPHETAMINE QUAL UR NONE DETECTED (NEG <=1000)
[2017-05-14 15:45] LABS: ALBUMIN 3.5 g/dL (3.4-5.0); ALKALINE PHOSPHATASE 107 U/L (46-116); ALT/SGPT 22 U/L (14-59); AMYLASE 56 U/L (25-115); AST/SGOT 23 U/L (15-37); BILIRUBIN TOTAL 0.3 mg/dL (0.20-1.00); CALCIUM 8.6 mg/dL (8.5-10.1); CHLORIDE SERUM 104 mmol/L (98-107); CHOLESTEROL 138 mg/dL (<200); CREATININE SERUM 0.7 mg/dL (0.6-1.0); GLUCOSE SERUM 122 mg/dL (74-106); HDL CHOLESTEROL 60 mg/dL (40-60); LIPASE 194 IU/L (73-393); POTASSIUM SERUM 3.2 mmol/L (3.5-5.1); SODIUM SERUM 141 mmol/L (136-145); T4(THYROXINE) 5.8 ug/dL (4.7-13.3); TOTAL PROTEIN, SERUM 6.8 g/dL (6.4-8.2)
[2017-05-14] MEDS ORDERED: HCTZ/LISINOPRIL1 TA1 PO (19:10)
[2017-05-14] MEDS ORDERED: METFORMIN HYDR500 M1 (19:10)
[2017-05-14] MEDS ORDERED: LATANOPROST2.5 ML OU (19:10)
[2017-05-14] MEDS ORDERED: VENTOLIN H0.09 MG/A1 INH (19:11)
[2017-05-14] MEDS ORDERED: METFORMIN HCL500 MG PO (19:58)
[2017-05-14] MEDS ORDERED: PEPCID20 MG PO (20:19)
[2017-05-14 20:21] VITALS: BP 162/70
[2017-05-14 20:23] VITALS: Ht 157.5 cm; Wt 53.7 kg
[2017-05-14 20:55] LABS: PHOSPHOROUS 3.7 mg/dL (2.5-4.9)
[2017-05-15 06:24] VITALS: BP 139/57
[2017-05-15 09:15] VITALS: BP 140/54
[2017-05-15] MEDS ORDERED: LEVAQUIN750 MG PO (10:27)
[2017-05-15] MEDS ORDERED: LAC PO (10:28)
[2017-05-15 10:49] LABS: BASOPHIL % 1.2 % (0-2); RED CELL DISTRIBUTION WIDTH 14.3 % (11.5-14.5)
[2017-05-15 10:51] LABS: PLATELET COUNT 84 x10^3mcL (130-400)
[2017-05-15 11:18] LABS: CALCIUM 8.6 mg/dL (8.5-10.1); CARBON DIOXIDE 25.1 mmol/L (21-32); CHLORIDE SERUM 105 mmol/L (98-107); CREATININE SERUM 0.5 mg/dL (0.6-1.0); GLUCOSE SERUM 132 mg/dL (74-106); MAGNESIUM 1.9 mg/dL (1.8-2.4); PHOSPHOROUS 2.9 mg/dL (2.5-4.9); POTASSIUM SERUM 3.5 mmol/L (3.5-5.1); SODIUM SERUM 133 mmol/L (136-145)
[2017-05-15 11:45] VITALS: BP 140/54
== END 2017-05-15 13:00 | disposition home or self-care (01) | DRG 690 ==
LOC: ED 12:30 → DU 18:31
PROVIDERS: Emergency Medicine; Family Medicine
DX: N39.0 Urinary tract infection, site not specified (principal); E87.1 Hypo-osmolality and hyponatremia; I42.9 Cardiomyopathy, unspecified; E87.6 Hypokalemia; D69.6 Thrombocytopenia, unspecified; D64.9 Anemia, unspecified; E11.40 Type 2 diabetes mellitus with diabetic neuropathy, unspecified; M50.122 Cervical disc disorder at C5-C6 level with radiculopathy; M50.123 Cervical disc disorder at C6-C7 level with radiculopathy; F41.9 Anxiety disorder, unspecified; G47.00 Insomnia, unspecified; F32.9 Major depressive disorder, single episode, unspecified; I11.9 Hypertensive heart disease without heart failure; J45.909 Unspecified asthma, uncomplicated; K21.9 Gastro-esophageal reflux disease without esophagitis; E03.9 Hypothyroidism, unspecified; M79.7 Fibromyalgia; E78.5 Hyperlipidemia, unspecified; H40.9 Unspecified glaucoma; Z79.84 Long term (current) use of oral hypoglycemic drugs
CPT/HCPCS: 76770; 82962; 83880; G0378; J0696; J7030; Q0092

== ENCOUNTER 2017-06-10 13:46 | Inpatient (IN) | payer OTHER ==
[~2017-06-10] VITALS: Ht 157.5 cm; Wt 54.1 kg
[~2017-06-10 13:46] MED LIST changes: +LATANOPROST2.5 ML OU; +LEVAQUIN750 MG PO; +METFORMIN HYDR500 M1
[2017-06-10] MEDS ORDERED: MECLIZINE HYDRO25 M1 PO (14:20)
[2017-06-10] MEDS ORDERED: LOVASTATIN20 MG PO (14:20)
[2017-06-10 15:04] LABS: BASOPHIL % 0.5 % (0-2); PLATELET COUNT 142 x10^3mcL (130-400); RED CELL DISTRIBUTION WIDTH 14.4 % (11.5-14.5)
[2017-06-10 15:07] LABS: CALCIUM 8.9 mg/dL (8.5-10.1); CARBON DIOXIDE 23.1 mmol/L (21-32); CHLORIDE SERUM 98 mmol/L (98-107); CREATININE SERUM 0.6 mg/dL (0.6-1.0); GLUCOSE SERUM 92 mg/dL (74-106); POTASSIUM SERUM 3.6 mmol/L (3.5-5.1); SODIUM SERUM 129 mmol/L (136-145)
[2017-06-10 15:12] LABS: ALBUMIN 3.7 g/dL (3.4-5.0); ALKALINE PHOSPHATASE 106 U/L (46-116); ALT/SGPT 25 U/L (14-59); AST/SGOT 27 U/L (15-37); BILIRUBIN TOTAL 0.3 mg/dL (0.20-1.00); CHOLESTEROL 145 mg/dL (<200); TOTAL PROTEIN, SERUM 6.7 g/dL (6.4-8.2)
[2017-06-10 16:10] LABS: microscopic required? NO
[2017-06-10 16:33] LABS: CHOLESTEROL/HDL RATIO 2.5; PHOSPHOROUS 3.6 mg/dL (2.5-4.9)
[2017-06-10 16:40] LABS: T3 TOTAL 0.67 ng/mL
[2017-06-10 16:44] LABS: FREE T4 1.04 ng/dL (0.76-1.46); FREE THYROXINE INDEX 2.5 ug/dL (1.4-4.5)
[2017-06-10 16:44] LABS: urine erythrocyte NEGATIVE (NEGATIVE)
[2017-06-10 16:53] LABS: AMPHETAMINE QUAL UR NONE DETECTED (NEG <=1000)
[2017-06-10 17:03] VITALS: BP 185/67
[2017-06-10 17:20] VITALS: BP 166/67
[2017-06-10] MEDS ORDERED: GABAPENTIN800 M1 PO (17:45)
[2017-06-10 20:46] VITALS: BP 160/50
[2017-06-10 21:37] LABS: CALCIUM 8.9 mg/dL (8.5-10.1); CARBON DIOXIDE 29.9 mmol/L (21-32); CHLORIDE SERUM 100 mmol/L (98-107); CREATININE SERUM 0.6 mg/dL (0.6-1.0); GLUCOSE SERUM 129 mg/dL (74-106); POTASSIUM SERUM 3.6 mmol/L (3.5-5.1); SODIUM SERUM 132 mmol/L (136-145)
[2017-06-11 04:44] VITALS: BP 132/52
[2017-06-11 06:34] LABS: BASOPHIL % 0.9 % (0-2)
[2017-06-11 07:09] LABS: CALCIUM 8.5 mg/dL (8.5-10.1); CARBON DIOXIDE 27.9 mmol/L (21-32); CHLORIDE SERUM 104 mmol/L (98-107); CREATININE SERUM 0.6 mg/dL (0.6-1.0); GLUCOSE SERUM 91 mg/dL (74-106); MAGNESIUM 2.1 mg/dL (1.8-2.4); PHOSPHOROUS 3.9 mg/dL (2.5-4.9); POTASSIUM SERUM 4.2 mmol/L (3.5-5.1); SODIUM SERUM 140 mmol/L (136-145)
[2017-06-11 07:10] LABS: PLATELET COUNT 129 x10^3mcL (130-400)
[2017-06-11 08:56] VITALS: BP 133/50
[2017-06-11 12:54] VITALS: BP 151/52
[2017-06-11 17:33] VITALS: BP 157/58
[2017-06-11 20:28] VITALS: BP 139/51
[2017-06-12 06:04] VITALS: BP 148/51
[2017-06-12 07:49] LABS: BASOPHIL % 0.2 % (0-2); PLATELET COUNT 121 x10^3mcL (130-400); RED CELL DISTRIBUTION WIDTH 14.2 % (11.5-14.5)
[2017-06-12 07:51] LABS: CALCIUM 8.1 mg/dL (8.5-10.1); CARBON DIOXIDE 27.7 mmol/L (21-32); CHLORIDE SERUM 108 mmol/L (98-107); CREATININE SERUM 0.6 mg/dL (0.6-1.0); GLUCOSE SERUM 92 mg/dL (74-106); MAGNESIUM 1.9 mg/dL (1.8-2.4); PHOSPHOROUS 3.4 mg/dL (2.5-4.9); POTASSIUM SERUM 3.3 mmol/L (3.5-5.1); SODIUM SERUM 139 mmol/L (136-145)
[2017-06-12] MEDS ORDERED: LOP50 PO (07:55)
[2017-06-12] MEDS ORDERED: ZES20 PO (07:55)
[2017-06-12] MEDS ORDERED: BACO TOP (07:57)
[2017-06-12] MEDS ORDERED: HIBICLENS118 ML TOP (07:57)
[2017-06-12 09:55] VITALS: BP 135/42
[2017-06-12 13:05] VITALS: BP 135/42
[2017-06-12 14:29] VITALS: BP 154/52
[2017-06-12 17:50] VITALS: BP 174/57
[2017-06-12 21:31] VITALS: BP 137/51
[2017-06-13 06:16] VITALS: BP 159/54
[2017-06-13 06:32] LABS: CALCIUM 8.6 mg/dL (8.5-10.1); CARBON DIOXIDE 27.8 mmol/L (21-32); CHLORIDE SERUM 107 mmol/L (98-107); CREATININE SERUM 0.6 mg/dL (0.6-1.0); GLUCOSE SERUM 113 mg/dL (74-106); MAGNESIUM 1.9 mg/dL (1.8-2.4); PHOSPHOROUS 3.2 mg/dL (2.5-4.9); POTASSIUM SERUM 4.1 mmol/L (3.5-5.1); SODIUM SERUM 143 mmol/L (136-145)
[2017-06-13 06:56] LABS: BASOPHIL % 0.4 % (0-2); PLATELET COUNT 130 x10^3mcL (130-400); RED CELL DISTRIBUTION WIDTH 14.2 % (11.5-14.5)
[2017-06-13 07:43] VITALS: Ht 157.5 cm; Wt 54.1 kg
[2017-06-13 13:40] VITALS: BP 150/56
[2017-06-13 14:00] VITALS: BP 150/56
== END 2017-06-13 17:05 | disposition home health service (06) | DRG 640 ==
LOC: ED 13:46 → DU 15:51
PROVIDERS: Family Medicine Sports Medicine; Specialist
DX: E87.1 Hypo-osmolality and hyponatremia (principal); G93.41 Metabolic encephalopathy; D63.8 Anemia in other chronic diseases classified elsewhere; I16.0 Hypertensive urgency; N32.81 Overactive bladder; K21.9 Gastro-esophageal reflux disease without esophagitis; J45.909 Unspecified asthma, uncomplicated; G47.00 Insomnia, unspecified; F41.9 Anxiety disorder, unspecified; E11.51 Type 2 diabetes mellitus with diabetic peripheral angiopathy without gangrene; E78.2 Mixed hyperlipidemia; E03.9 Hypothyroidism, unspecified; H40.9 Unspecified glaucoma; M50.122 Cervical disc disorder at C5-C6 level with radiculopathy; M50.123 Cervical disc disorder at C6-C7 level with radiculopathy; Z22.322 Carrier or suspected carrier of Methicillin resistant Staphylococcus aureus
CPT/HCPCS: 82962; 83880; 84439; 97110-GP; 97116-GP; 97530-GP; G0480; J7030; Q0092; Q0162

== ENCOUNTER 2017-06-22 12:29 | Emergency (ER) | payer OTHER ==
[~2017-06-22] VITALS: Ht 154.9 cm; Wt 54.5 kg
[~2017-06-22 12:29] MED LIST changes: +LOP50 PO
[2017-06-22 12:33] VITALS: Ht 154.9 cm; Wt 54.5 kg
[2017-06-22 13:55] LABS: CALCIUM 8.5 mg/dL (8.5-10.1); CHLORIDE SERUM 98 mmol/L (98-107); CREATININE SERUM 0.6 mg/dL (0.6-1.0); GLUCOSE SERUM 120 mg/dL (74-106); POTASSIUM SERUM 3.7 mmol/L (3.5-5.1); SODIUM SERUM 130 mmol/L (136-145)
[2017-06-22 14:00] LABS: BASOPHIL % 0.5 % (0-2); PLATELET COUNT 151 x10^3mcL (130-400)
[2017-06-22 14:01] LABS: ALKALINE PHOSPHATASE 90 U/L (46-116); ALT/SGPT 27 U/L (14-59); AST/SGOT 25 U/L (15-37); BILIRUBIN TOTAL 0.3 mg/dL (0.20-1.00); TOTAL PROTEIN, SERUM 6.4 g/dL (6.4-8.2)
[2017-06-22 14:02] LABS: ALBUMIN 3.3 g/dL (3.4-5.0)
[2017-06-22 14:23] LABS: RED CELL DISTRIBUTION WIDTH 14.9 % (11.5-14.5)
[2017-06-22 15:18] VITALS: BP 138/64
== END 2017-06-22 15:18 | disposition home or self-care (01) ==
LOC: ED 12:29
PROVIDERS: Emergency Medicine
DX: J45.901 Unspecified asthma with (acute) exacerbation (principal); R51 Headache; J02.9 Acute pharyngitis, unspecified; M54.9 Dorsalgia, unspecified; M79.7 Fibromyalgia; E78.00 Pure hypercholesterolemia, unspecified; K21.9 Gastro-esophageal reflux disease without esophagitis; I11.0 Hypertensive heart disease with heart failure; I50.9 Heart failure, unspecified; M50.10 Cervical disc disorder with radiculopathy, unspecified cervical region; E11.40 Type 2 diabetes mellitus with diabetic neuropathy, unspecified; E07.9 Disorder of thyroid, unspecified; I42.9 Cardiomyopathy, unspecified; Z88.5 Allergy status to narcotic agent; Z88.0 Allergy status to penicillin
CPT/HCPCS: 36415; 83880; J7613; J7644; Q0092

== ENCOUNTER 2017-07-14 10:20 | Emergency (ER) | payer OTHER ==
[~2017-07-14] VITALS: Ht 160 cm; Wt 55.8 kg
[2017-07-14 10:26] VITALS: Ht 160 cm; Wt 55.8 kg
[2017-07-14 13:33] LABS: microscopic required? YES; urine erythrocyte NEGATIVE (NEGATIVE)
[2017-07-14 14:08] VITALS: BP 150/76
== END 2017-07-14 14:08 | disposition home or self-care (01) ==
LOC: ED 10:20
PROVIDERS: Specialist
DX: N39.0 Urinary tract infection, site not specified (principal); J45.909 Unspecified asthma, uncomplicated; I11.0 Hypertensive heart disease with heart failure; I50.9 Heart failure, unspecified; E11.9 Type 2 diabetes mellitus without complications; Z90.89 Acquired absence of other organs; Z88.5 Allergy status to narcotic agent; Z88.0 Allergy status to penicillin; Z90.49 Acquired absence of other specified parts of digestive tract

== ENCOUNTER 2017-09-21 16:32 | Observation (INO) | payer OTHER ==
[~2017-09-21] VITALS: Ht 160 cm; Wt 54.0 kg
[~2017-09-21 16:32] MED LIST changes: +CLINDAMYCIN HC300 MG PO; +DITROPAN XL10 MG PO; +ESCITALOPRAM10 M1 PO; +GOOD SENSE OMEP20 MG PO
[2017-09-21 16:40] VITALS: Ht 160 cm; Wt 54.0 kg
[2017-09-21 17:47] LABS: CHLORIDE SERUM 92 mmol/L (98-107); CREATININE SERUM 0.7 mg/dL (0.6-1.0); GLUCOSE SERUM 82 mg/dL (74-106); POTASSIUM SERUM 3.5 mmol/L (3.5-5.1); SODIUM SERUM 128 mmol/L (136-145)
[2017-09-21 17:49] LABS: BASOPHIL % 0.4 % (0-2); PLATELET COUNT 145 x10^3mcL (130-400)
[2017-09-21 17:52] LABS: RED CELL DISTRIBUTION WIDTH 14.9 % (11.5-14.5)
[2017-09-21 17:52] LABS: microscopic required? NO
[2017-09-21 18:01] LABS: UA SPECIFIC GRAVITY <=1.005 (1.005-1.035); urine erythrocyte NEGATIVE (NEGATIVE)
[2017-09-21 18:02] LABS: ALBUMIN 3.8 g/dL (3.4-5.0); ALKALINE PHOSPHATASE 121 U/L (46-116); ALT/SGPT 26 U/L (14-59); AMYLASE 52 U/L (25-115); AST/SGOT 26 U/L (15-37); BILIRUBIN TOTAL 0.33 mg/dL (0.20-1.00); LIPASE 186 IU/L (73-393); TOTAL PROTEIN, SERUM 6.7 g/dL (6.4-8.2)
[2017-09-21 18:04] LABS: CHOLESTEROL 134 mg/dL (<200); HDL CHOLESTEROL 61 mg/dL (40-60)
[2017-09-21 18:14] LABS: AMPHETAMINE QUAL UR NONE DETECTED (See below)
[2017-09-21 20:21] VITALS: BP 158/71
[2017-09-22 06:18] VITALS: BP 149/60
[2017-09-22 06:32] LABS: ALBUMIN 3.4 g/dL (3.4-5.0); ALKALINE PHOSPHATASE 96 U/L (46-116); ALT/SGPT 22 U/L (14-59); AST/SGOT 24 U/L (15-37); BILIRUBIN TOTAL 0.38 mg/dL (0.20-1.00); CALCIUM 8.9 mg/dL (8.5-10.1); CHLORIDE SERUM 99 mmol/L (98-107); CREATININE SERUM 0.6 mg/dL (0.6-1.0); GLUCOSE SERUM 87 mg/dL (74-106); HDL CHOLESTEROL 59 mg/dL (40-60); POTASSIUM SERUM 3.1 mmol/L (3.5-5.1); SODIUM SERUM 135 mmol/L (136-145); TRIGLYCERIDES 64 mg/dL (<150)
[2017-09-22 06:42] LABS: CHOLESTEROL 131 mg/dL (<200); CHOLESTEROL/HDL RATIO 2.2; TOTAL PROTEIN, SERUM 6.1 g/dL (6.4-8.2)
[2017-09-22 10:15] VITALS: BP 154/89
[2017-09-22] MEDS ORDERED: ZES20 PO (12:46)
[2017-09-22 12:54] VITALS: BP 120/50
[2017-09-22 13:15] VITALS: BP 120/50
== END 2017-09-22 16:24 | disposition home health service (06) | DRG 305 ==
LOC: ED 16:32 → DU 18:18
PROVIDERS: Emergency Medicine; Internal Medicine Pulmonary Disease
DX: I16.0 Hypertensive urgency (principal); I50.32 Chronic diastolic (congestive) heart failure; E11.9 Type 2 diabetes mellitus without complications; E03.9 Hypothyroidism, unspecified; J45.909 Unspecified asthma, uncomplicated; E87.6 Hypokalemia
CPT/HCPCS: 83880; 97110-GP; G0378; J1650; J3535; Q0092

== ENCOUNTER 2017-09-24 21:17 | Emergency (ER) | payer OTHER ==
[~2017-09-24] VITALS: Ht 154.9 cm; Wt 55.3 kg
[2017-09-24 21:37] VITALS: Ht 154.9 cm; Wt 55.3 kg
[2017-09-24 22:16] LABS: CALCIUM 9.3 mg/dL (8.5-10.1); CHLORIDE SERUM 95 mmol/L (98-107); CREATININE SERUM 0.7 mg/dL (0.6-1.0); GLUCOSE SERUM 98 mg/dL (74-106); POTASSIUM SERUM 4.2 mmol/L (3.5-5.1); SODIUM SERUM 129 mmol/L (136-145)
[2017-09-25 02:17] VITALS: BP 122/74
== END 2017-09-25 02:17 | disposition home or self-care (01) ==
LOC: ED 21:17
PROVIDERS: Emergency Medicine
DX: I10 Essential (primary) hypertension (principal); I11.0 Hypertensive heart disease with heart failure; I50.9 Heart failure, unspecified; E11.9 Type 2 diabetes mellitus without complications; K21.9 Gastro-esophageal reflux disease without esophagitis; M79.7 Fibromyalgia; E11.40 Type 2 diabetes mellitus with diabetic neuropathy, unspecified; M19.90 Unspecified osteoarthritis, unspecified site; Z90.49 Acquired absence of other specified parts of digestive tract; Z88.0 Allergy status to penicillin; Z88.5 Allergy status to narcotic agent
CPT/HCPCS: J7030

== ENCOUNTER 2017-10-13 17:10 | Emergency (ER) | payer OTHER ==
[~2017-10-13] VITALS: Ht 152.4 cm; Wt 64.0 kg
[2017-10-13 18:00] VITALS: Ht 152.4 cm; Wt 64.0 kg
[2017-10-13 20:16] LABS: BASOPHIL % 0.5 % (0-2); PLATELET COUNT 145 x10^3mcL (130-400)
[2017-10-13 20:17] LABS: UA SPECIFIC GRAVITY <=1.005 (1.005-1.035); microscopic required? YES; urine erythrocyte NEGATIVE (NEGATIVE)
[2017-10-13 20:21] LABS: RED CELL DISTRIBUTION WIDTH 14.7 % (11.5-14.5)
[2017-10-13 20:24] LABS: CALCIUM 8.1 mg/dL (8.5-10.1); CARBON DIOXIDE 26.4 mmol/L (21-32); CHLORIDE SERUM 101 mmol/L (98-107); CREATININE SERUM 0.6 mg/dL (0.6-1.0); GLUCOSE SERUM 181 mg/dL (74-106); POTASSIUM SERUM 3.8 mmol/L (3.5-5.1); SODIUM SERUM 136 mmol/L (136-145)
[2017-10-13 20:35] LABS: ALBUMIN 3.7 g/dL (3.4-5.0); ALKALINE PHOSPHATASE 120 U/L (46-116); ALT/SGPT 26 U/L (14-59); AST/SGOT 19 U/L (15-37); BILIRUBIN TOTAL 0.3 mg/dL (0.20-1.00); TOTAL PROTEIN, SERUM 6.5 g/dL (6.4-8.2)
[2017-10-13 22:00] VITALS: BP 161/79
== END 2017-10-13 22:01 | disposition home or self-care (01) ==
LOC: ED 17:10
PROVIDERS: Specialist
DX: N39.0 Urinary tract infection, site not specified (principal); J45.909 Unspecified asthma, uncomplicated; I11.0 Hypertensive heart disease with heart failure; I50.9 Heart failure, unspecified; E11.9 Type 2 diabetes mellitus without complications; M79.7 Fibromyalgia; E78.00 Pure hypercholesterolemia, unspecified; Z88.5 Allergy status to narcotic agent; Z88.0 Allergy status to penicillin; Z90.49 Acquired absence of other specified parts of digestive tract
CPT/HCPCS: 36415; J0696

== ENCOUNTER 2017-10-24 00:18 | Observation (INO) | payer OTHER ==
[2017-10-24] VITALS (7 sets, daily range): BP systolic 136–189; BP diastolic 54–78
[~2017-10-24] VITALS: Ht 160 cm; Wt 53.7 kg
[2017-10-24] MEDS ORDERED: LISINOPRIL40 MG PO (01:23)
[2017-10-24 02:30] LABS: BASOPHIL % 0.5 % (0-2); PLATELET COUNT 158 x10^3mcL (130-400); RED CELL DISTRIBUTION WIDTH 14.2 % (11.5-14.5)
[2017-10-24 02:47] LABS: CALCIUM 9.3 mg/dL (8.5-10.1); CARBON DIOXIDE 30.4 mmol/L (21-32); CHLORIDE SERUM 103 mmol/L (98-107); CREATININE SERUM 0.7 mg/dL (0.6-1.0); GLUCOSE SERUM 106 mg/dL (74-106); POTASSIUM SERUM 3.8 mmol/L (3.5-5.1); SODIUM SERUM 140 mmol/L (136-145)
[2017-10-24 02:51] LABS: ALBUMIN 3.9 g/dL (3.4-5.0); ALKALINE PHOSPHATASE 155 U/L (46-116); ALT/SGPT 21 U/L (14-59); AST/SGOT 23 U/L (15-37); BILIRUBIN TOTAL 0.32 mg/dL (0.20-1.00); LIPASE 170 IU/L (73-393); TOTAL PROTEIN, SERUM 6.7 g/dL (6.4-8.2)
[2017-10-24 03:27] LABS: microscopic required? YES; urine erythrocyte NEGATIVE (NEGATIVE)
[2017-10-24] MEDS ORDERED: ISOSORBIDE MONO30 MG PO (11:26)
[2017-10-24] MEDS ORDERED: LOP50 PO (11:26)
[2017-10-25 06:37] LABS: BASOPHIL % 0.4 % (0-2)
[2017-10-25 06:42] LABS: PLATELET COUNT 125 x10^3mcL (130-400); RED CELL DISTRIBUTION WIDTH 14.7 % (11.5-14.5)
[2017-10-25 06:50] LABS: ALKALINE PHOSPHATASE 86 U/L (46-116); ALT/SGPT 27 U/L (14-59); AST/SGOT 26 U/L (15-37); BILIRUBIN TOTAL 0.41 mg/dL (0.20-1.00); CALCIUM 8.6 mg/dL (8.5-10.1); CARBON DIOXIDE 27.9 mmol/L (21-32); CHLORIDE SERUM 107 mmol/L (98-107); CREATININE SERUM 0.7 mg/dL (0.6-1.0); GLUCOSE SERUM 98 mg/dL (74-106); MAGNESIUM 2.1 mg/dL (1.8-2.4); POTASSIUM SERUM 3.3 mmol/L (3.5-5.1); SODIUM SERUM 142 mmol/L (136-145)
[2017-10-25 07:09] LABS: ALBUMIN 3.2 g/dL (3.4-5.0); TOTAL PROTEIN, SERUM 5.9 g/dL (6.4-8.2)
[2017-10-25 08:01] VITALS: BP 141/54
[2017-10-25 10:08] VITALS: BP 134/58
[2017-10-25 13:31] VITALS: BP 140/63
[2017-10-25 13:53] VITALS: Ht 160 cm; Wt 53.7 kg
== END 2017-10-25 16:00 | disposition home or self-care (01) | DRG 305 ==
LOC: ED 00:18 → DU 05:49
PROVIDERS: Emergency Medicine; Internal Medicine Pulmonary Disease
DX: I16.0 Hypertensive urgency (principal); I50.32 Chronic diastolic (congestive) heart failure; I11.0 Hypertensive heart disease with heart failure; E11.40 Type 2 diabetes mellitus with diabetic neuropathy, unspecified; E03.9 Hypothyroidism, unspecified; I25.10 Atherosclerotic heart disease of native coronary artery without angina pectoris; K21.9 Gastro-esophageal reflux disease without esophagitis; M50.10 Cervical disc disorder with radiculopathy, unspecified cervical region; M19.90 Unspecified osteoarthritis, unspecified site; M79.7 Fibromyalgia; F41.9 Anxiety disorder, unspecified; F32.9 Major depressive disorder, single episode, unspecified; R32 Unspecified urinary incontinence; Z79.84 Long term (current) use of oral hypoglycemic drugs
CPT/HCPCS: 83880; G0378; J1644; J3535; Q0092

== ENCOUNTER 2017-11-07 13:36 | Emergency (ER) | payer OTHER ==
[~2017-11-07] VITALS: Ht 157.5 cm; Wt 55.8 kg
[~2017-11-07 13:36] MED LIST changes: +ISOSORBIDE MONO30 MG PO
[2017-11-07 13:42] VITALS: Ht 157.5 cm; Wt 55.8 kg
[2017-11-07 15:14] LABS: microscopic required? NO
[2017-11-07 15:28] LABS: BASOPHIL % 0.5 % (0-2); PLATELET COUNT 179 x10^3mcL (130-400)
[2017-11-07 15:32] LABS: CALCIUM 8.7 mg/dL (8.5-10.1); CARBON DIOXIDE 27.7 mmol/L (21-32); CHLORIDE SERUM 98 mmol/L (98-107); CREATININE SERUM 0.7 mg/dL (0.6-1.0); GLUCOSE SERUM 93 mg/dL (74-106); POTASSIUM SERUM 4.1 mmol/L (3.5-5.1); SODIUM SERUM 131 mmol/L (136-145)
[2017-11-07 15:37] LABS: ALBUMIN 4.1 g/dL (3.4-5.0); ALKALINE PHOSPHATASE 147 U/L (46-116); ALT/SGPT 31 U/L (14-59); AMYLASE 73 U/L (25-115); AST/SGOT 25 U/L (15-37); BILIRUBIN TOTAL 0.31 mg/dL (0.20-1.00); LIPASE 220 IU/L (73-393); TOTAL PROTEIN, SERUM 7.2 g/dL (6.4-8.2)
[2017-11-07 16:18] LABS: UA SPECIFIC GRAVITY <=1.005 (1.005-1.035); urine erythrocyte NEGATIVE (NEGATIVE)
[2017-11-07 16:23] VITALS: BP 149/79
== END 2017-11-07 17:07 | disposition home or self-care (01) ==
LOC: ED 13:36
PROVIDERS: Emergency Medicine
DX: R10.11 Right upper quadrant pain (principal); E11.9 Type 2 diabetes mellitus without complications; I10 Essential (primary) hypertension; E78.00 Pure hypercholesterolemia, unspecified; E03.9 Hypothyroidism, unspecified; F41.9 Anxiety disorder, unspecified; F32.9 Major depressive disorder, single episode, unspecified; M79.7 Fibromyalgia; Z88.0 Allergy status to penicillin; Z88.5 Allergy status to narcotic agent
CPT/HCPCS: J1885; J7030; Q0092

== ENCOUNTER 2017-12-06 20:19 | Inpatient (IN) | payer OTHER ==
[~2017-12-06] VITALS: Ht 160 cm; Wt 56.9 kg
[2017-12-06 22:08] LABS: RED CELL DISTRIBUTION WIDTH 14.2 % (11.5-14.5)
[2017-12-06 22:09] LABS: BASOPHIL % 0 % (0-2); PLATELET COUNT 122 x10^3mcL (130-400)
[2017-12-06 22:21] LABS: CALCIUM 8.5 mg/dL (8.5-10.1); CARBON DIOXIDE 28.7 mmol/L (21-32); CHLORIDE SERUM 93 mmol/L (98-107); CREATININE SERUM 1.5 mg/dL (0.6-1.0); GLUCOSE SERUM 240 mg/dL (74-106); POTASSIUM SERUM 3.9 mmol/L (3.5-5.1); SODIUM SERUM 128 mmol/L (136-145)
[2017-12-06 22:25] LABS: ALKALINE PHOSPHATASE 112 U/L (46-116); ALT/SGPT 22 U/L (14-59); AST/SGOT 18 U/L (15-37); BILIRUBIN TOTAL 0.5 mg/dL (0.20-1.00); TOTAL PROTEIN, SERUM 6.7 g/dL (6.4-8.2)
[2017-12-06 22:28] LABS: ALBUMIN 3.2 g/dL (3.4-5.0)
[2017-12-07 00:47] LABS: UA SPECIFIC GRAVITY 1.015 (1.005-1.035); microscopic required? YES; urine erythrocyte 2+ (NEGATIVE)
[2017-12-07 02:49] VITALS: BP 137/57
[2017-12-07 05:53] VITALS: BP 115/50
[2017-12-07 06:40] LABS: ALKALINE PHOSPHATASE 115 U/L (46-116); ALT/SGPT 7 U/L (14-59); BILIRUBIN TOTAL 0.35 mg/dL (0.20-1.00); CALCIUM 8.3 mg/dL (8.5-10.1); CARBON DIOXIDE 22.4 mmol/L (21-32); CHLORIDE SERUM 99 mmol/L (98-107); CREATININE SERUM 1.1 mg/dL (0.6-1.0); GLUCOSE SERUM 138 mg/dL (74-106); MAGNESIUM 1.7 mg/dL (1.8-2.4); PHOSPHOROUS 2.4 mg/dL (2.5-4.9); POTASSIUM SERUM 3.3 mmol/L (3.5-5.1); SODIUM SERUM 132 mmol/L (136-145)
[2017-12-07 06:41] LABS: ALBUMIN 2.5 g/dL (3.4-5.0); TOTAL PROTEIN, SERUM 5.5 g/dL (6.4-8.2)
[2017-12-07 06:42] LABS: RED CELL DISTRIBUTION WIDTH 14.4 % (11.5-14.5)
[2017-12-07 06:55] LABS: AST/SGOT 18 U/L (15-37)
[2017-12-07 06:57] LABS: BASOPHIL % 0 % (0-2); PLATELET COUNT 103 x10^3mcL (130-400)
[2017-12-07 09:41] VITALS: BP 114/60
[2017-12-07 12:15] VITALS: BP 114/60
== END 2017-12-07 14:00 | disposition home or self-care (01) | DRG 640 ==
LOC: ED 20:19 → MU 12-07 00:34
PROVIDERS: Emergency Medicine; Internal Medicine Pulmonary Disease
DX: E87.1 Hypo-osmolality and hyponatremia (principal); N17.0 Acute kidney failure with tubular necrosis; N39.0 Urinary tract infection, site not specified; E86.0 Dehydration; E87.6 Hypokalemia; I12.9 Hypertensive chronic kidney disease with stage 1 through stage 4 chronic kidney disease, or unspecified chronic kidney disease; N18.2 Chronic kidney disease, stage 2 (mild); M79.7 Fibromyalgia; F32.9 Major depressive disorder, single episode, unspecified; E11.9 Type 2 diabetes mellitus without complications; E03.9 Hypothyroidism, unspecified; Z22.322 Carrier or suspected carrier of Methicillin resistant Staphylococcus aureus; Z79.82 Long term (current) use of aspirin; Z79.84 Long term (current) use of oral hypoglycemic drugs
CPT/HCPCS: J0696; J1644; J1885; J3475; J3535; J7030

== ENCOUNTER 2018-02-04 23:42 | Emergency (ER) | payer OTHER ==
[~2018-02-04] VITALS: Ht 160 cm; Wt 81.6 kg
[2018-02-04 23:53] VITALS: Ht 160 cm; Wt 81.6 kg
[2018-02-05 00:28] LABS: BASOPHIL % 0.4 % (0-2); PLATELET COUNT 144 x10^3mcL (130-400); RED CELL DISTRIBUTION WIDTH 13.9 % (11.5-14.5)
[2018-02-05 00:45] LABS: CARBON DIOXIDE 25.2 mmol/L (21-32); CHLORIDE SERUM 97 mmol/L (98-107); CREATININE SERUM 0.9 mg/dL (0.6-1.0); GLUCOSE SERUM 116 mg/dL (74-106); POTASSIUM SERUM 4.2 mmol/L (3.5-5.1); SODIUM SERUM 131 mmol/L (136-145)
[2018-02-05 00:50] LABS: ALBUMIN 3.9 g/dL (3.4-5.0); ALKALINE PHOSPHATASE 129 U/L (46-116); ALT/SGPT 23 U/L (14-59); AST/SGOT 21 U/L (15-37); BILIRUBIN TOTAL 0.3 mg/dL (0.20-1.00)
[2018-02-05 00:57] LABS: CALCIUM 9.1 mg/dL (8.5-10.1)
[2018-02-05 04:56] VITALS: BP 135/64
== END 2018-02-05 04:56 | disposition home or self-care (01) ==
LOC: ED 23:42
PROVIDERS: Emergency Medicine
DX: R51 Headache (principal); N39.0 Urinary tract infection, site not specified; J45.909 Unspecified asthma, uncomplicated; I11.0 Hypertensive heart disease with heart failure; I50.9 Heart failure, unspecified; E11.9 Type 2 diabetes mellitus without complications; F41.9 Anxiety disorder, unspecified; F32.9 Major depressive disorder, single episode, unspecified; E78.00 Pure hypercholesterolemia, unspecified; M19.90 Unspecified osteoarthritis, unspecified site; Z98.890 Other specified postprocedural states; Z90.89 Acquired absence of other organs; Z88.5 Allergy status to narcotic agent
CPT/HCPCS: J1885; J7030

== ENCOUNTER 2018-02-10 17:25 | Emergency (ER) | payer OTHER ==
[~2018-02-10] VITALS: Ht 152.4 cm; Wt 56.2 kg
[2018-02-10 17:32] VITALS: Ht 152.4 cm; Wt 56.2 kg
[2018-02-10 18:14] LABS: BASOPHIL % 0.3 % (0-2); PLATELET COUNT 132 x10^3mcL (130-400); RED CELL DISTRIBUTION WIDTH 13.5 % (11.5-14.5)
[2018-02-10 18:23] LABS: CALCIUM 8.4 mg/dL (8.5-10.1); CARBON DIOXIDE 26.4 mmol/L (21-32); CHLORIDE SERUM 105 mmol/L (98-107); CREATININE SERUM 0.8 mg/dL (0.6-1.0); GLUCOSE SERUM 97 mg/dL (74-106); POTASSIUM SERUM 3.8 mmol/L (3.5-5.1); SODIUM SERUM 139 mmol/L (136-145)
[2018-02-10 18:27] LABS: ALBUMIN 3.7 g/dL (3.4-5.0); ALKALINE PHOSPHATASE 106 U/L (46-116); ALT/SGPT 26 U/L (14-59); AST/SGOT 31 U/L (15-37); BILIRUBIN TOTAL 0.56 mg/dL (0.20-1.00); TOTAL PROTEIN, SERUM 6.8 g/dL (6.4-8.2)
[2018-02-10 21:28] VITALS: BP 113/53
== END 2018-02-10 21:28 | disposition home or self-care (01) ==
LOC: ED 17:25
PROVIDERS: Emergency Medicine
DX: N39.0 Urinary tract infection, site not specified (principal); B96.1 Klebsiella pneumoniae [K. pneumoniae] as the cause of diseases classified elsewhere; I50.9 Heart failure, unspecified; I11.9 Hypertensive heart disease without heart failure; J45.909 Unspecified asthma, uncomplicated; F41.9 Anxiety disorder, unspecified; F32.9 Major depressive disorder, single episode, unspecified; E11.40 Type 2 diabetes mellitus with diabetic neuropathy, unspecified; M79.7 Fibromyalgia; E78.00 Pure hypercholesterolemia, unspecified; K21.9 Gastro-esophageal reflux disease without esophagitis; Z90.49 Acquired absence of other specified parts of digestive tract; Z90.89 Acquired absence of other organs; Z98.890 Other specified postprocedural states; Z88.5 Allergy status to narcotic agent

== ENCOUNTER 2018-06-03 16:06 | Emergency (ER) | payer OTHER ==
[~2018-06-03] VITALS: Ht 154.9 cm; Wt 54.0 kg
[2018-06-03 16:15] VITALS: Ht 154.9 cm; Wt 54.0 kg
[2018-06-03 19:51] LABS: BASOPHIL % 0.7 % (0-2); PLATELET COUNT 142 x10^3mcL (130-400); RED CELL DISTRIBUTION WIDTH 13.9 % (11.5-14.5)
[2018-06-03 21:25] LABS: CHLORIDE SERUM 105 mmol/L (98-107); CREATININE SERUM 0.7 mg/dL (0.6-1.0); GLUCOSE SERUM 95 mg/dL (74-106); POTASSIUM SERUM 3.7 mmol/L (3.5-5.1); SODIUM SERUM 140 mmol/L (136-145)
[2018-06-03 21:30] LABS: ALBUMIN 3.8 g/dL (3.4-5.0); ALKALINE PHOSPHATASE 104 U/L (46-116); ALT/SGPT 26 U/L (14-59); AST/SGOT 24 U/L (15-37); BILIRUBIN TOTAL 0.3 mg/dL (0.20-1.00); TOTAL PROTEIN, SERUM 7.2 g/dL (6.4-8.2)
[2018-06-03 22:15] VITALS: BP 127/63
== END 2018-06-03 22:15 | disposition home or self-care (01) ==
LOC: ED 16:06
PROVIDERS: Emergency Medicine
DX: N39.0 Urinary tract infection, site not specified (principal); R42 Dizziness and giddiness; R19.7 Diarrhea, unspecified; I11.0 Hypertensive heart disease with heart failure; I50.9 Heart failure, unspecified; E11.40 Type 2 diabetes mellitus with diabetic neuropathy, unspecified; F41.9 Anxiety disorder, unspecified; F32.9 Major depressive disorder, single episode, unspecified; M79.7 Fibromyalgia; M19.90 Unspecified osteoarthritis, unspecified site; E78.00 Pure hypercholesterolemia, unspecified; K21.9 Gastro-esophageal reflux disease without esophagitis; Z90.89 Acquired absence of other organs; Z90.49 Acquired absence of other specified parts of digestive tract; Z98.890 Other specified postprocedural states; Z88.5 Allergy status to narcotic agent
CPT/HCPCS: J1885; J7030

== ENCOUNTER 2018-07-06 15:50 | Observation (INO) | payer OTHER ==
[~2018-07-06] VITALS: Ht 154.9 cm; Wt 55.8 kg
[2018-07-06 15:57] VITALS: Ht 154.9 cm; Wt 55.8 kg
[2018-07-06 16:47] LABS: BASOPHIL % 0.5 % (0-2); PLATELET COUNT 144 x10^3mcL (130-400); RED CELL DISTRIBUTION WIDTH 13.8 % (11.5-14.5)
[2018-07-06 16:58] LABS: CALCIUM 8.7 mg/dL (8.5-10.1); CARBON DIOXIDE 26.1 mmol/L (21-32); CHLORIDE SERUM 102 mmol/L (98-107); CREATININE SERUM 0.9 mg/dL (0.6-1.0); GLUCOSE SERUM 117 mg/dL (74-106); POTASSIUM SERUM 3.5 mmol/L (3.5-5.1); SODIUM SERUM 137 mmol/L (136-145)
[2018-07-06 17:02] LABS: ALBUMIN 3.8 g/dL (3.4-5.0); ALKALINE PHOSPHATASE 106 U/L (46-116); ALT/SGPT 51 U/L (14-59); AST/SGOT 25 U/L (15-37); BILIRUBIN TOTAL 0.31 mg/dL (0.20-1.00); TOTAL PROTEIN, SERUM 6.5 g/dL (6.4-8.2)
[2018-07-06 18:33] LABS: AMPHETAMINE QUAL UR NONE DETECTED (See below)
[2018-07-06 20:12] LABS: UA SPECIFIC GRAVITY <=1.005 (1.005-1.035); microscopic required? YES; urine erythrocyte TRACE (NEGATIVE)
[2018-07-06] MEDS ORDERED: PREMIERPRO RX5 MG/GM OP (21:58)
[2018-07-06] MEDS ORDERED: DITROPAN XL10 MG PO (21:59)
[2018-07-06] MEDS ORDERED: SYMBICORT1 AE2 INH (21:59)
[2018-07-06] MEDS ORDERED: DOK COLACE100 MG PO (22:00)
[2018-07-06] MEDS ORDERED: VESICARE5 M1 PO (22:01)
[2018-07-06] MEDS ORDERED: LOVASTATIN20 MG PO (22:01)
[2018-07-06] MEDS ORDERED: GOOD SENSE OMEP20 MG PO (22:02)
[2018-07-06] MEDS ORDERED: NEPHRO-VITE VITA1 EA PO (22:02)
[2018-07-06] MEDS ORDERED: GABAPENTIN300 M4 PO (22:03)
[2018-07-06] MEDS ORDERED: ESCITALOPRAM OX10 MG PO (22:04)
[2018-07-06] MEDS ORDERED: TOPROL XL25 MG PO (22:05)
[2018-07-06] MEDS ORDERED: AMLODIPINE BESY10 M2 PO (22:05)
[2018-07-06] MEDS ORDERED: FERROUS SULFAT325 M2 PO (22:06)
[2018-07-06 23:58] VITALS: BP 123/45
[2018-07-07 06:16] VITALS: BP 132/50
[2018-07-07 06:22] LABS: BASOPHIL % 0.5 % (0-2); PLATELET COUNT 138 x10^3mcL (130-400); RED CELL DISTRIBUTION WIDTH 13.5 % (11.5-14.5)
[2018-07-07 06:42] LABS: ALBUMIN 3.6 g/dL (3.4-5.0); ALKALINE PHOSPHATASE 95 U/L (46-116); ALT/SGPT 45 U/L (14-59); AST/SGOT 25 U/L (15-37); BILIRUBIN TOTAL 0.31 mg/dL (0.20-1.00); CALCIUM 8.9 mg/dL (8.5-10.1); CARBON DIOXIDE 26.1 mmol/L (21-32); CHLORIDE SERUM 107 mmol/L (98-107); CREATININE SERUM 0.8 mg/dL (0.6-1.0); GLUCOSE SERUM 125 mg/dL (74-106); MAGNESIUM 1.9 mg/dL (1.8-2.4); POTASSIUM SERUM 3.1 mmol/L (3.5-5.1); SODIUM SERUM 143 mmol/L (136-145); TOTAL PROTEIN, SERUM 6.6 g/dL (6.4-8.2)
[2018-07-07 07:05] VITALS: BP 118/46
[2018-07-07 10:46] VITALS: BP 125/45
[2018-07-07 10:54] VITALS: BP 118/46
== END 2018-07-07 19:40 | DRG 74 ==
LOC: ED 15:50 → DU 22:16
PROVIDERS: Emergency Medicine; ADMIT Internal Medicine Pulmonary Disease
DX: E11.40 Type 2 diabetes mellitus with diabetic neuropathy, unspecified (principal); I50.32 Chronic diastolic (congestive) heart failure; I11.0 Hypertensive heart disease with heart failure; F41.9 Anxiety disorder, unspecified; R19.7 Diarrhea, unspecified; N32.81 Overactive bladder; M79.7 Fibromyalgia; J45.909 Unspecified asthma, uncomplicated; Z68.23 Body mass index [BMI] 23.0-23.9, adult
CPT/HCPCS: 83880; G0378; J0696; J1940; J7040; Q0092

== ENCOUNTER 2018-09-04 10:19 | Emergency (ER) | payer OTHER ==
[~2018-09-04] VITALS: Ht 157.5 cm; Wt 53.5 kg
[~2018-09-04 10:19] MED LIST changes: +AMLODIPINE BESY10 M2 PO; +DOK COLACE100 MG PO; +ESCITALOPRAM OX10 MG PO; +GABAPENTIN300 M4 PO; +NEPHRO-VITE VITA1 EA PO; +PREMIERPRO RX5 MG/GM OP; +SYMBICORT1 AE2 INH; +TOPROL XL25 MG PO; +VESICARE5 M1 PO
[2018-09-04 10:24] VITALS: Ht 157.5 cm; Wt 53.5 kg
[2018-09-04 11:24] VITALS: BP 155/70
[2018-09-04 11:51] LABS: microscopic required? YES; urine erythrocyte NEGATIVE (NEGATIVE)
== END 2018-09-04 12:25 | disposition home or self-care (01) ==
LOC: ED 10:19
PROVIDERS: Emergency Medicine
DX: M79.7 Fibromyalgia (principal); N39.0 Urinary tract infection, site not specified; G89.29 Other chronic pain; R10.9 Unspecified abdominal pain; M79.604 Pain in right leg; M79.605 Pain in left leg; J45.909 Unspecified asthma, uncomplicated; I11.0 Hypertensive heart disease with heart failure; I50.9 Heart failure, unspecified; E11.9 Type 2 diabetes mellitus without complications; E78.00 Pure hypercholesterolemia, unspecified; Z13.9 Encounter for screening, unspecified; Z88.5 Allergy status to narcotic agent; Z90.89 Acquired absence of other organs; Z98.890 Other specified postprocedural states
CPT/HCPCS: J1885; Q0092

== ENCOUNTER 2018-10-06 21:42 | Emergency (ER) | payer OTHER ==
[~2018-10-06] VITALS: Ht 157.5 cm; Wt 55.3 kg
[2018-10-06 21:46] VITALS: Ht 157.5 cm; Wt 55.3 kg
[2018-10-07 00:12] VITALS: BP 181/64
== END 2018-10-07 00:12 | disposition home or self-care (01) ==
LOC: ED 21:42
DX: K21.9 Gastro-esophageal reflux disease without esophagitis (principal); M19.90 Unspecified osteoarthritis, unspecified site; Z88.5 Allergy status to narcotic agent; Z91.018 Allergy to other foods
CPT/HCPCS: J1885

== ENCOUNTER 2018-11-24 17:43 | Emergency (ER) | payer OTHER ==
[~2018-11-24] VITALS: Ht 157.5 cm; Wt 56.2 kg
[2018-11-24 18:06] VITALS: Ht 157.5 cm; Wt 56.2 kg
[2018-11-24 19:29] LABS: BASOPHIL % 0.4 % (0-2); RED CELL DISTRIBUTION WIDTH 13.9 % (11.5-14.5)
[2018-11-24 19:30] LABS: PLATELET COUNT 121 x10^3mcL (130-400)
[2018-11-24 19:33] LABS: CALCIUM 8.5 mg/dL (8.5-10.1); CARBON DIOXIDE 33.8 mmol/L (21-32); CHLORIDE SERUM 104 mmol/L (98-107); CREATININE SERUM 0.7 mg/dL (0.6-1.0); GLUCOSE SERUM 142 mg/dL (74-106); POTASSIUM SERUM 3.5 mmol/L (3.5-5.1); SODIUM SERUM 141 mmol/L (136-145)
[2018-11-24 19:38] LABS: ALBUMIN 3.5 g/dL (3.4-5.0); ALKALINE PHOSPHATASE 121 U/L (46-116); ALT/SGPT 29 U/L (14-59); AST/SGOT 23 U/L (15-37); BILIRUBIN TOTAL 0.3 mg/dL (0.20-1.00); TOTAL PROTEIN, SERUM 6.7 g/dL (6.4-8.2)
[2018-11-24 22:16] VITALS: BP 144/62
== END 2018-11-24 22:00 | disposition home or self-care (01) ==
LOC: ED 17:43
PROVIDERS: Emergency Medicine
DX: L84 Corns and callosities (principal); I11.0 Hypertensive heart disease with heart failure; I50.9 Heart failure, unspecified; J45.909 Unspecified asthma, uncomplicated; E11.40 Type 2 diabetes mellitus with diabetic neuropathy, unspecified; M79.7 Fibromyalgia; E78.00 Pure hypercholesterolemia, unspecified; K21.9 Gastro-esophageal reflux disease without esophagitis; F41.9 Anxiety disorder, unspecified; F32.9 Major depressive disorder, single episode, unspecified; M19.90 Unspecified osteoarthritis, unspecified site; Z98.890 Other specified postprocedural states; Z90.49 Acquired absence of other specified parts of digestive tract; Z90.89 Acquired absence of other organs; Z88.5 Allergy status to narcotic agent
CPT/HCPCS: 36415; Q0092

== ENCOUNTER 2018-12-11 11:01 | Observation (INO) | payer OTHER ==
[~2018-12-11] VITALS: Ht 154.9 cm; Wt 55.0 kg
[2018-12-11 11:03] VITALS: Ht 154.9 cm; Wt 55.0 kg
[2018-12-11 11:49] LABS: BASOPHIL % 0.3 % (0-2); PLATELET COUNT 131 x10^3mcL (130-400); RED CELL DISTRIBUTION WIDTH 13.7 % (11.5-14.5)
[2018-12-11 12:04] LABS: ALBUMIN 3.4 g/dL (3.4-5.0); ALKALINE PHOSPHATASE 117 U/L (46-116); ALT/SGPT 21 U/L (14-59); AST/SGOT 24 U/L (15-37); BILIRUBIN TOTAL 0.4 mg/dL (0.20-1.00); CALCIUM 8.5 mg/dL (8.5-10.1); CARBON DIOXIDE 30.4 mmol/L (21-32); CHLORIDE SERUM 105 mmol/L (98-107); CREATININE SERUM 0.8 mg/dL (0.6-1.0); GLUCOSE SERUM 185 mg/dL (74-106); SODIUM SERUM 144 mmol/L (136-145); TOTAL PROTEIN, SERUM 6.3 g/dL (6.4-8.2)
[2018-12-11 12:08] LABS: POTASSIUM SERUM 2.9 mmol/L (3.5-5.1)
[2018-12-11 12:25] LABS: UA SPECIFIC GRAVITY <=1.005 (1.005-1.035); microscopic required? YES; urine erythrocyte NEGATIVE (NEGATIVE)
[2018-12-11] MEDS ORDERED: LASIX40 MG PO (12:28)
[2018-12-11] MEDS ORDERED: TOPROL XL25 MG PO (12:30)
[2018-12-11] MEDS ORDERED: NEU300 (12:38)
[2018-12-11] MEDS ORDERED: APAP500 MG (12:39)
[2018-12-11] MEDS ORDERED: NEU300 PO (12:39)
[2018-12-11] MEDS ORDERED: DULOXETINE HYDR60 MG PO (12:41)
[2018-12-11 13:04] VITALS: BP 136/52
[2018-12-11 13:50] VITALS: BP 147/54
[2018-12-11 16:28] VITALS: BP 145/68
[2018-12-11 21:06] VITALS: BP 123/60
[2018-12-12 05:26] VITALS: BP 156/52
[2018-12-12 06:26] LABS: BASOPHIL % 0.4 % (0-2); RED CELL DISTRIBUTION WIDTH 13.8 % (11.5-14.5)
[2018-12-12 06:43] LABS: CALCIUM 8.6 mg/dL (8.5-10.1); CHLORIDE SERUM 110 mmol/L (98-107); CREATININE SERUM 0.7 mg/dL (0.6-1.0); GLUCOSE SERUM 111 mg/dL (74-106); MAGNESIUM 1.9 mg/dL (1.8-2.4); POTASSIUM SERUM 3.1 mmol/L (3.5-5.1); SODIUM SERUM 148 mmol/L (136-145)
[2018-12-12 06:50] LABS: PLATELET COUNT 126 x10^3mcL (130-400)
[2018-12-12 08:09] VITALS: BP 137/61
[2018-12-12 12:11] VITALS: BP 122/47
[2018-12-12 16:21] VITALS: BP 109/56
[2018-12-12 20:42] VITALS: BP 141/51
[2018-12-13 04:38] VITALS: BP 119/43
[2018-12-13 06:21] LABS: BASOPHIL % 0.3 % (0-2); RED CELL DISTRIBUTION WIDTH 14.1 % (11.5-14.5)
[2018-12-13 06:25] LABS: CALCIUM 8.6 mg/dL (8.5-10.1); CARBON DIOXIDE 30.6 mmol/L (21-32); CHLORIDE SERUM 106 mmol/L (98-107); CREATININE SERUM 0.7 mg/dL (0.6-1.0); GLUCOSE SERUM 102 mg/dL (74-106); MAGNESIUM 1.9 mg/dL (1.8-2.4); POTASSIUM SERUM 4.1 mmol/L (3.5-5.1); SODIUM SERUM 144 mmol/L (136-145)
[2018-12-13 06:48] LABS: PLATELET COUNT 124 x10^3mcL (130-400)
[2018-12-13 08:34] VITALS: BP 133/43
[2018-12-13 12:36] VITALS: BP 124/43
== END 2018-12-13 17:15 | disposition home or self-care (01) | DRG 313 ==
LOC: ED 11:01 → DU 12:37
PROVIDERS: Emergency Medicine; ADMIT Internal Medicine Pulmonary Disease
DX: R07.9 Chest pain, unspecified (principal); I50.32 Chronic diastolic (congestive) heart failure; I11.0 Hypertensive heart disease with heart failure; E87.6 Hypokalemia; R54 Age-related physical debility; E11.40 Type 2 diabetes mellitus with diabetic neuropathy, unspecified; E03.9 Hypothyroidism, unspecified; J45.909 Unspecified asthma, uncomplicated; M79.7 Fibromyalgia; G89.4 Chronic pain syndrome; Z68.21 Body mass index [BMI] 21.0-21.9, adult
CPT/HCPCS: 82962; 83880; 97116-GP; 97530-GP; G0378; J2270; J2405; J3475; J3480; J7030; J7040; J7620; J7626; J8597; Q0092

== ENCOUNTER 2019-02-17 22:29 | Emergency (ER) | payer OTHER ==
[~2019-02-17] VITALS: Ht 157.5 cm; Wt 55.3 kg
[~2019-02-17 22:29] MED LIST changes: +APAP500 MG; +DULOXETINE HYDR60 MG PO; +LASIX40 MG PO; +NEU300
[2019-02-17 22:38] VITALS: Ht 157.5 cm; Wt 55.3 kg
[2019-02-17 23:07] LABS: BASOPHIL % 0.3 % (0-2); PLATELET COUNT 149 x10^3mcL (130-400)
[2019-02-17 23:17] LABS: CALCIUM 9.1 mg/dL (8.5-10.1); CHLORIDE SERUM 101 mmol/L (98-107); CREATININE SERUM 1.1 mg/dL (0.6-1.0); GLUCOSE SERUM 166 mg/dL (74-106); POTASSIUM SERUM 3.5 mmol/L (3.5-5.1); SODIUM SERUM 140 mmol/L (136-145)
[2019-02-17 23:21] LABS: ALBUMIN 3.9 g/dL (3.4-5.0); ALKALINE PHOSPHATASE 136 U/L (46-116); ALT/SGPT 19 U/L (14-59); AMYLASE 44 U/L (25-115); AST/SGOT 16 U/L (15-37); BILIRUBIN TOTAL 0.34 mg/dL (0.20-1.00); LIPASE 88 IU/L (73-393); TOTAL PROTEIN, SERUM 7.1 g/dL (6.4-8.2)
[2019-02-18 01:50] VITALS: BP 125/44
== END 2019-02-18 01:50 | disposition home or self-care (01) ==
LOC: ED 22:29
PROVIDERS: Emergency Medicine
DX: K52.9 Noninfective gastroenteritis and colitis, unspecified (principal); J45.909 Unspecified asthma, uncomplicated; I11.0 Hypertensive heart disease with heart failure; I50.9 Heart failure, unspecified; E11.9 Type 2 diabetes mellitus without complications; E78.00 Pure hypercholesterolemia, unspecified; K21.9 Gastro-esophageal reflux disease without esophagitis; Z98.890 Other specified postprocedural states; Z88.5 Allergy status to narcotic agent
CPT/HCPCS: J1885; J7030

== ENCOUNTER 2019-07-21 19:49 | Emergency (ER) | payer OTHER ==
[~2019-07-21] VITALS: Ht 157.5 cm; Wt 59.0 kg
[2019-07-21 19:57] VITALS: Ht 157.5 cm; Wt 59.0 kg
[2019-07-21 21:53] LABS: PLATELET COUNT 133 x10^3mcL (130-400); RED CELL DISTRIBUTION WIDTH 12.9 % (11.5-14.5)
[2019-07-21 21:56] LABS: BASOPHIL % 0 % (0-2)
[2019-07-21 22:06] LABS: CALCIUM 9.4 mg/dL (8.5-10.1); CARBON DIOXIDE 25.7 mmol/L (21-32); CHLORIDE SERUM 103 mmol/L (98-107); CREATININE SERUM 0.7 mg/dL (0.6-1.0); GLUCOSE SERUM 127 mg/dL (74-106); SODIUM SERUM 140 mmol/L (136-145)
[2019-07-21 22:10] LABS: ALBUMIN 3.9 g/dL (3.4-5.0); ALKALINE PHOSPHATASE 97 U/L (46-116); ALT/SGPT 20 U/L (14-59); AST/SGOT 22 U/L (15-37); BILIRUBIN TOTAL 0.4 mg/dL (0.20-1.00); MAGNESIUM 2.1 mg/dL (1.8-2.4); TOTAL PROTEIN, SERUM 6.8 g/dL (6.4-8.2)
[2019-07-21 22:43] LABS: UA SPECIFIC GRAVITY <=1.005 (1.005-1.035); microscopic required? YES; urine erythrocyte NEGATIVE (NEGATIVE)
[2019-07-22 01:25] VITALS: BP 178/62
== END 2019-07-22 01:25 | disposition home or self-care (01) ==
LOC: ED 19:49
PROVIDERS: Emergency Medicine
DX: N39.0 Urinary tract infection, site not specified (principal); J45.909 Unspecified asthma, uncomplicated; I50.9 Heart failure, unspecified; I11.0 Hypertensive heart disease with heart failure; M79.7 Fibromyalgia; E11.40 Type 2 diabetes mellitus with diabetic neuropathy, unspecified; E78.00 Pure hypercholesterolemia, unspecified; K21.9 Gastro-esophageal reflux disease without esophagitis; M19.90 Unspecified osteoarthritis, unspecified site; Z98.890 Other specified postprocedural states; Z90.49 Acquired absence of other specified parts of digestive tract; Z90.89 Acquired absence of other organs; Z88.5 Allergy status to narcotic agent; Z88.8 Allergy status to other drugs, medicaments and biological substances
CPT/HCPCS: 83880; J7030; Q0092

== ENCOUNTER 2019-08-03 11:42 | Observation (INO) | payer OTHER ==
[~2019-08-03] VITALS: Ht 157.5 cm; Wt 55.4 kg
--- NOTE | 2019-08-03 11:59 | NUR ---
PT BIBA, C/O CHEST PAIN SINCE 0500 THIS MORNING. PER MEDICS PATIENT WAS AT AN URGENT CARE TO BE SEEN FOR HER CHEST PAIN AND URGET CARE CALLED MEDICS FOR FURTHER CARE AT [facility]. PATIENT STATES 10/10 PRESSURE CHEST PAIN THAT RADIATES TO HER NECK, LEFT ARM AND BACK, PT STATES HER CHEST PAIN HAS BEEN CONTINUOUS SINCE 0500 AM TODAY, PT ALSO STATES DIZZINESS AT THIS TIME. PT DENIES ANY N/V/D/C AT THIS TIME. DENIES ANY COVID19 SYMPTOMS, TRAVELING, OR AROUND ANYONE POSITIVE WITH COVID19. PATIET DENIES ANY OTHER SYMPTOMS AT THIS TIME. PATIENT AAOX4, NO ACUTE DISTRESS AT THIS TIME. PT EKG DONE, PLACED IN FULL CM, +PULSE OX, GOWNED, MSE DONE BY DR. HILL. PT +PMSC IN ALL EXTREMITIES. CALL LIGHT WITHIN REACH. WILL CONTINUE TO MONITOR. PT ALBANIAN SPEAKER. DAUGHTER JAKE DRAPER YANICK
--- NOTE | 2019-08-03 12:07 | NUR ---
ALBERTO VIVAR [facility] FOR EKG
[2019-08-03 12:15] LABS: BASOPHIL % 0.2 % (0-2); PLATELET COUNT 112 x10^3mcL (130-400); RED CELL DISTRIBUTION WIDTH 13.4 % (11.5-14.5)
--- NOTE | 2019-08-03 12:16 | NUR ---
XRAY AT BEDSIDE
[2019-08-03 12:50] LABS: CARBON DIOXIDE 30.4 mmol/L (21-32); CHLORIDE SERUM 107 mmol/L (98-107); CREATININE SERUM 0.7 mg/dL (0.6-1.0); GLUCOSE SERUM 105 mg/dL (74-106); SODIUM SERUM 144 mmol/L (136-145)
[2019-08-03 12:55] LABS: ALBUMIN 3.6 g/dL (3.4-5.0); ALKALINE PHOSPHATASE 96 U/L (46-116); ALT/SGPT 20 U/L (14-59); AST/SGOT 18 U/L (15-37); BILIRUBIN TOTAL 0.4 mg/dL (0.20-1.00); TOTAL PROTEIN, SERUM 6.2 g/dL (6.4-8.2)
--- NOTE | 2019-08-03 12:58 | NUR ---
PT LAYING AND SLEEPING, NO DISTRESS NOTED AT THIS TIME. PT EASILY AWAKEN WHEN CALLED PT NAME. CALL LIGHT WITHIN REACH, WILL CONTINUE TO MONITOR.
[2019-08-03] MEDS ORDERED: TIROSINT25 MC1 PO (13:43)
[2019-08-03] MEDS ORDERED: XAN25 PO (13:43)
[2019-08-03] MEDS ORDERED: RESTASIS0.051 OP (13:44)
[2019-08-03] MEDS ORDERED: PROAIR HFA8.5 GM (13:44)
[2019-08-03] MEDS ORDERED: GRALISE600 MG PO (13:44)
[2019-08-03] MEDS ORDERED: MUCINEX DM1 TE1 PO (13:45)
--- NOTE | 2019-08-03 14:27 | NUR ---
PATIENT LAYIN BED WITH EYES CLOSED, CHEST RAISING UP/DOWN, NO ACUTE DISTRESS NOTED AT THIS TIME. PATIENT WAKES UP AND STATES "I FEEL BETTER THAN EARLIER" PROVIDED PT WITH WATER, PER DR. HILL OK. CALL LIGHT WITHIN REACH, WILL CONTINUE TO MONITOR.
--- NOTE | 2019-08-03 15:05 | NUR ---
HELPED PT WITH BED MOSHER, PT TOLERATED WELL. WILL CONTINUE TO MONITOR.
--- NOTE | 2019-08-03 15:13 | NUR ---
NOTIFED DR. BARNARD OF PT VITAL SIGNS AND BLOOD PRESSURE. NO NEW ORDERS AT THIS TIME, WILL CONTINUE TO MONITOR.
--- NOTE | 2019-08-03 15:23 | NUR ---
REPORT GIVEN TO JANA DOMINGUEZ, CONFIRMED ROOM 239B, ALL QUESTIONS ADDRESSED.
[2019-08-03 15:25] LABS: CHOLESTEROL/HDL RATIO 2.9
--- NOTE | 2019-08-03 15:31 | NUR ---
RECEIVED PT FROM ED VIA GUERNEY, PT WAS WEARING A MASK. PLACED ON DROPLET/CONTACT ISOLATION. PT CAME IN DUE TO CHEST PAIN. AAOX4. DENIES HEADACHE/DIZZINESS. ABLE TO FOLLOW COMMANDS. NO SOB NOTED, O2 SAT=99%, RA. DENIES COUGH. DENIES CHEST PAIN/PRESSURE, SR ON THE MONITOR. DENIES ABDOMINAL DISCOMFORT. C/O SOME BURNING SENSATION ON URINATION. IV SITE ON THE LAC GAUGE 20 IS PATENT AND INTACT. W/ BROWN DISCOLORATIONS ON BLE AND SOME ECCHYMOSIS ON BUE. SIDE RAILS UPX2. CALL LIGHT ON REACH. PRIMARY NURSE KAYLEE AT BEDSIDE FOR CONTINUITY OF CARE
[2019-08-03 15:52] VITALS: BP 125/64
[2019-08-03 16:03] VITALS: Ht 157.5 cm; Wt 55.4 kg
--- NOTE | 2019-08-03 18:23 | NUR ---
PT SITTING UP IN BED EATING LUNCH. NO ACUTE DISTRESS. AAOX4. RESP EVEN AND UNLABORED ON RA. DENIES CP OR PRESSURE AT THIS TIME. SR/SB ON TELE MONITOR. IV WITH NO REDNESS OR SWELLING. GEN WEAKNESS. FALL PRECAUTIONS. DROPLET/CONTACT ISOLATION. BED IN LOW POSITION, CALL LIGHT WITHIN REACH. WILL ENDORSE TO ONCOMING SHIFT.
--- NOTE | 2019-08-03 20:00 | NUR ---
RECEIVED PT IN BED, RESTING QUIETLY.A/O X4. ABLE TO VERBALIZE NEEDS. RESP. EVEN AND UNLABORED. ON ROOM AIR, NO ACUTE DISTRESS NOTED. AFEBRILE AND VITAL SIGNS STABLE. SR ON THE MONITOR, DENIES CP OR ANY DISCOMFORT AT THIS TIME. HL TO RAC, INTACT AND PATENT.REMAINS ON DROPLET/CONTACT ISOLATION. BED IN LOWEST POSITION AND CALL LIGHT WITHIN REACH. WILL CONTINUE TO MONITOR.
[2019-08-03 22:14] VITALS: BP 158/57
--- NOTE | 2019-08-04 01:47 | NUR ---
RESTING QUIETLY IN BED, WITH EYES CLOSED, APPEARS ASLEEP, EASILY AROUSABLE. RESP. EVEN AND UNLABORED. NO ACUTE DISTRESS NOTED. CALL LIGHT WITHIN REACH. WILL CONTINUE TO MONITOR.
--- NOTE | 2019-08-04 06:45 | NUR ---
ALERT AND ORIENTED. SLEPT WELL. NO COMPLAINTS NOTED. AFEBRILE AND VITAL SIGNS STABLE. RESP. EVEN AND UNLABORED. ON ROOM AIR, DENIES SOB. NO ACUTE DISTRESS NOTED. DUE MEDS GIVEN ORDERED, RENA. WELL. INCONT. OF URINE, KEPT CLEAN AND DRY.WILL ENDORSE TO INCOMING NURSE.
[2019-08-04 06:48] VITALS: BP 154/59
[2019-08-04 07:24] LABS: BASOPHIL % 0.3 % (0-2); RED CELL DISTRIBUTION WIDTH 12.8 % (11.5-14.5)
--- NOTE | 2019-08-04 07:30 | NUR ---
RECEIVED PT LYING IN BED A/A. BREATHING EQUAL/UNLABORED ON RA. NO PAIN/DISTRESS. IV SITE WNL. BED IN LOW POSITION, CALL LIGHT IN REACH, SAFETY PRECAUTIONS IN PLACE. WILL CONTINUE TO MONITOR
[2019-08-04 07:50] LABS: CALCIUM 9.2 mg/dL (8.5-10.1); CARBON DIOXIDE 29.7 mmol/L (21-32); CHLORIDE SERUM 107 mmol/L (98-107); CREATININE SERUM 0.7 mg/dL (0.6-1.0); GLUCOSE SERUM 103 mg/dL (74-106); POTASSIUM SERUM 3.6 mmol/L (3.5-5.1); SODIUM SERUM 144 mmol/L (136-145)
[2019-08-04 08:10] LABS: PLATELET COUNT 118 x10^3mcL (130-400)
[2019-08-04 08:50] VITALS: BP 150/63
[2019-08-04 12:30] VITALS: BP 136/56
--- NOTE | 2019-08-04 12:45 | NUR ---
PT LYING IN BED A/A. BREATHING EQUAL/UNLABORED ON RA. NO ACUTE CHANGES/PAIN/DISTRESS. IV SITE WNL. WILL CONTINUE TO MONITOR
--- NOTE | 2019-08-04 13:31 | NUR ---
POSITIVE MRSA REPORTED TO DR. ADAMES, NO NEW ORDERS GIVEN
--- NOTE | 2019-08-04 14:29 | NUR ---
PT WAS SEEN FOR DYSPHAGIA. PT WAS ABLE TO SAFELY SWALLOW PUREE DIET WITH THIN LIQUID WITHOUT S/S OF ASPIRATION. MILD DIFFICULTY WITH MASTICATION SKILLS. RECOMMENDATION PUREE DIET WITH THIN LIQUID
[2019-08-04 17:15] VITALS: BP 152/53
--- NOTE | 2019-08-04 18:19 | NUR ---
PT LYING IN BED A/A. BREATHING EQUAL/UNLABORED ON RA. NO ACUTE CHANGES/DISTRESS. MILD PAIN TO BACK, TYLENOL WAS GIVEN AND PT WAS REPOSITIONED FOR COMFORT. IV SITE WNL. BED IN LOW POSITION, CALL LIGHT IN REACH, SAFETY PRECAUTIONS IN PLACE. WILL ENDORSE TO NIGHT NURSE
--- NOTE | 2019-08-04 19:34 | NUR ---
PT CALLED STATED HAVING BACK PAIN. EXPLAINED TYLENOL WAS GIVEN ABOUT 6PM NOT DUE FOR ANOTHER. EXPLAINED HAS GABAPENTIN DUE AT 9PM, MAYBE GIVEN A LITTLE EARLY, PT VERBALIZED UNDERSTANDING. ASKED PT FOR ANY OTHER NEEDS AT THIS TIME. STATED HAVING NO OTHER NEEDS AT THIS TIME. NURSE WAYNE DEVI
[2019-08-04 20:23] VITALS: BP 155/59
--- NOTE | 2019-08-04 21:03 | NUR ---
AWAKE AND ALERT, ORIENTED TO NAME, PLACE, TIME AND SITUATION. SPEECH CLEAR AND APPROPRIATE. ABLE TO MAKE NEEDS KNOWN. STATED HAVING BACK PAIN, CHRONIC. STATED TAKES GABAPENTIN FOR IT. DUE GABAPENTIN ADMINISTERED PO. ABLE TO TAKE PILLS ONE AT A TIME, NO SWALLOW DELAY OR COUGHING NOTED. BREATHING EVEN AND UNLABORED ON ROOM AIR. DENIES HAVING SHORTNESS OF BREATH OR CHEST PAIN. SINUS RHYTHM ON TELE. PADS WET WITH URINE. HYGIENE NEEDS ATTENDED TO. PADS CHANGED. CALL LIGHT WITHIN EASY REACH. BED ALARM ON.
--- NOTE | 2019-08-05 00:53 | NUR ---
EYES CLOSED, BREATHING EVEN AND UNLABORED ON ROOM AIR. HOB ELEVATED 30 DEG. CALL LIGHT WITHIN EASY REACH.
[2019-08-05 06:13] VITALS: BP 158/56
--- NOTE | 2019-08-05 06:16 | NUR ---
EYES CLOSED, EASILY AWAKENED. BREATHING EVEN AND UNLABORED. STATED SLEPT WELL. PADS WET WITH URINE. HYGIENE NEEDS ATTENDED TO. GOWN AND LINENS CHANGED. CALL LIGHT WITHIN EASY REACH. BED ALARM ON. KEPT ON DROPLET AND CONTACT ISOLATION.
--- NOTE | 2019-08-05 07:09 | NUR ---
IN NO ACUTE DISTRESS. BREATHING EVEN AND UNLABORED. ENDORSED TO NURSE LOVE
--- NOTE | 2019-08-05 07:33 | NUR ---
PT ENDORSE TO ME THIS MORNING, LAYING IN BED RESTING, AA/O X4/ HONDURAN SPKING/ABLE TO FOLLOW SIMPLE COMMANDS AND LET NEEDS BE KNOWN. TELE 8 NSR/ HR 72 DENIES ANY CP OR PRESSURE. BOWEL SOUNDS ACTIVE IN ALL FOUR QUADS/ LAST BM 08/02. INCONT AT TIMES/ KNOWS TO CALL FOR ASSIST. GEN WEAKNESS/ USES WALKER AT HOME. MEDICATED PER EMAR FOR BACK PAIN. LAC INTACT AND PATENT/NO REDNESS OR SWELLING NOTED. CALL LIGHT IN REACH. BED IN LOW POSITION. BED ALARM ON. WILL CONTINUE TO MONITOR. REMAINS ON ISOLATION.
[2019-08-05 08:15] VITALS: BP 160/58
--- NOTE | 2019-08-05 10:38 | NUR ---
COVID-19 RESULTS = NEG
[2019-08-05 11:31] VITALS: BP 148/60
--- NOTE | 2019-08-05 13:47 | NUR ---
EXPLAINED DISCHARGE INSTRUCTIONS, CONTINUED MEDS AND FOLLOW UP APPT WITH PT AND HER CAREGIVER MERON. BOTH AGREED AND PT AND SIGNED DISCHARGED INSTRUCTIONS. REMOVED IV TO THE LAC/ CATHETER TIP INTACT / NO REDNESS OR SWELLING NOTED. PENDING DC HOME.
--- NOTE | 2019-08-05 13:54 | NUR ---
CALLED PT CAREGIVER DELANEY TO EXPLAIN DISCHARGE AGAIN , CAREGIVER IS CLEAR ON ALL INSTRUCTIONS AND WILL ARRIVE AT 1440 IS CURRENTLY IN TRAFFIC.
--- NOTE | 2019-08-05 14:23 | NUR ---
REMOVED TELE 3 AND RETURNED BACK TO TELE. PENDING DC
--- NOTE | 2019-08-05 15:20 | NUR ---
CALLED PT CAREGIVER DELANEY ASKED FOR ETA, STATED GOT A FLAT TIRE AND WILL BE HERE WITH-IN 30 MIN. WILL CONTINUE TO MONITOR.
--- NOTE | 2019-08-05 16:03 | NUR ---
PT CAREGIVER DELANEY CALLED AND STATED SHE IS IN FRONT OF HOSPITAL WAITING FOR PT/ WELL LOGGER DOROTHY WILL WHEEL PT DOWN TO FRONT OF HOSPTIAL. PT IS STABLE/ DENIES ANY SOB NOTE CP OR PAIN. DC HOME.
== END 2019-08-05 16:06 | disposition home or self-care (01) ==
LOC: ED 11:42 → DU 14:30
PROVIDERS: Emergency Medicine; ADMIT Internal Medicine
DX: R07.89 Other chest pain (principal); J45.909 Unspecified asthma, uncomplicated; Z20.828 Contact with and (suspected) exposure to other viral communicable diseases; I10 Essential (primary) hypertension; E11.9 Type 2 diabetes mellitus without complications; K21.9 Gastro-esophageal reflux disease without esophagitis; E03.9 Hypothyroidism, unspecified; R13.10 Dysphagia, unspecified; F41.9 Anxiety disorder, unspecified
CPT/HCPCS: 82962; 83880; 92526-GN; 92610-GN; G0378; J1644; Q0092

== ENCOUNTER 2019-12-31 22:54 | Emergency (ER) | payer OTHER ==
[~2019-12-31] VITALS: Ht 157.5 cm; Wt 61.7 kg
[~2019-12-31 22:54] MED LIST changes: +GRALISE600 MG PO; +MUCINEX DM1 TE1 PO; +PROAIR HFA8.5 GM; +TIROSINT25 MC1 PO; +XAN25 PO
[2019-12-31 23:06] VITALS: Ht 157.5 cm; Wt 61.7 kg
[2019-12-31 23:58] LABS: BASOPHIL % 0.3 % (0-2); PLATELET COUNT 130 x10^3mcL (130-400); RED CELL DISTRIBUTION WIDTH 13.3 % (11.5-14.5)
[2020-01-01 00:40] VITALS: BP 144/79
== END 2020-01-01 00:40 | disposition home or self-care (01) ==
LOC: ED 22:54
PROVIDERS: Emergency Medicine
DX: I83.91 Asymptomatic varicose veins of right lower extremity (principal); J45.909 Unspecified asthma, uncomplicated; I50.9 Heart failure, unspecified; I11.0 Hypertensive heart disease with heart failure; E11.40 Type 2 diabetes mellitus with diabetic neuropathy, unspecified; Z90.89 Acquired absence of other organs

== ENCOUNTER 2020-01-01 20:46 | Emergency (ER) | payer OTHER ==
[~2020-01-01] VITALS: Ht 157.5 cm; Wt 57.2 kg
[2020-01-01 20:57] VITALS: Ht 157.5 cm; Wt 57.2 kg
[2020-01-01 23:04] VITALS: BP 152/63
== END 2020-01-01 23:04 | disposition home or self-care (01) ==
LOC: ED 20:46
DX: I83.91 Asymptomatic varicose veins of right lower extremity (principal); L98.9 Disorder of the skin and subcutaneous tissue, unspecified

== ENCOUNTER 2020-03-24 15:43 | Emergency (ER) | payer OTHER | END 2020-03-24 18:03 | disposition left against medical advice (07) | LOC: ED 15:43 | DX: Z53.21 Procedure and treatment not carried out due to patient leaving prior to being seen by health care provider (principal) ==